=== PATIENT | male | born 1950 | race Hispanic/Latino ===

== ENCOUNTER 2018-07-22 13:13 | Inpatient (IN) | payer MEDICARE ==
[2018-07-22 13:50] LABS: BASO % 0.5 % (0.0-2.0); EOS # 0.1 K/uL (0.0-0.7); HEMOGLOBIN 15.8 g/dL (12.0-18.0); LYMPH # 1.9 K/uL (1.0-4.3); MEAN CELL VOLUME 97.6 fL (80.0-94.0); MEAN CORPUSCULAR HEMOGLOBIN 33.4 pg (27.0-31.0); MEAN CORPUSCULAR HGB CONC 34.2 g/dL (33.0-37.0); MEAN PLATELET VOLUME 8.1 fL (7.2-11.7); MONO # 0.9 K/uL (0.0-0.8); MONO % 10.1 % (0.0-10.0); NEUT # 5.9 K/uL (1.8-7.0); NEUT % 67.4 % (50.0-75.0); RBC 4.74 Mil/uL (4.40-5.90); RED CELL DISTRIBUTION WIDTH 15.8 % (11.5-14.5); WHITE BLOOD COUNT 8.8 K/uL (4.8-10.8)
[2018-07-22 13:59] LABS: ALB/GLOB RATIO 1.5 (1.0-2.1); ALBUMIN 4.6 g/dL (3.5-5.0); ALT/SGPT 24 U/L (21-72); AST/SGOT 36 U/L (17-59); BLOOD UREA NITROGEN 36 mg/dL (9-20); CALCIUM 8.4 mg/dl (8.6-10.4); GFR NON-AFRICAN AMERICAN > 60
[2018-07-22 14:11] LABS: B-TYPE NATRIURETIC PEPTIDE 220 pg/mL (0-900); CK-MB 4.38 ng/mL (0.0-3.38)
--- NOTE | 2018-07-22 14:17 | RAD ---
Date of service: 07/22/2018 PROCEDURE: CHEST RADIOGRAPH, 1 VIEW HISTORY: sob COMPARISON: None available. FINDINGS: LUNGS: Heterogeneous opacities noted at left lower lobe and lung base may represent atelectasis or infiltrate. Mild elevation of the left hemidiaphragm is noted. PLEURA: No pneumothorax or pleural fluid seen. CARDIOVASCULAR: No aortic atherosclerotic calcification present. Normal. OSSEOUS STRUCTURES: No significant abnormalities. VISUALIZED UPPER ABDOMEN: Normal. OTHER FINDINGS: None. IMPRESSION: Heterogeneous opacities at the left lower lobe may represent atelectasis or infiltrate.
--- NOTE | 2018-07-22 15:30 | C.PDOC ---
History Of Present Illness 68 year old male with PMHx of diabetes and HTN (uncontrolled, does not have a PMD or specialist) BIBA to ED for evaluation of shortness of breath. He reports he stepped out of his house and went to help an elderly neighbor that was laying on the ground. He called 911 and when the helper coordinator came they noticed he was short of breath. Patient denies any chest pain, palpitations, headache, dizziness, fever, cough, headache, or confusion. Reports he quit smoking cigarettes several weeks ago. Time Seen by Provider: 07/22/18 13:16 Chief Complaint (Nursing): Medical Clearance History Per: Patient History/Exam Limitations: no limitations Onset/Duration Of Symptoms: Days Current Symptoms Are (Timing): Better Past Medical History Reviewed: Historical Data, Nursing Documentation, Vital Signs Vital Signs: Last Vital Signs Temp 97.5 F L 07/22/18 13:13 Pulse 93 H 07/22/18 13:13 Resp 16 07/22/18 13:13 BP 169/81 H 07/22/18 13:13 Pulse Ox 96 07/22/18 13:13 Primary Care Provider: Non [facility] Provider, - Medical History PMH: COPD (not sure), HTN Other Surgeries: Orthopedic surgery Family History: States: No Known Family Hx - Social History Hx Alcohol Use: Yes Hx Substance Use: No - Immunization History Hx Tetanus Toxoid Vaccination: No Hx Influenza Vaccination: No Hx Pneumococcal Vaccination: No Review Of Systems Constitutional: Negative for: Fever, Chills Cardiovascular: Negative for: Chest Pain, Palpitations Respiratory: Positive for: Shortness of Breath Gastrointestinal: Negative for: Nausea, Vomiting, Diarrhea Neurological: Negative for: Confusion, Headache, Dizziness Physical Exam - Physical Exam Appears: Non-toxic, No Acute Distress Skin: Warm, Dry Head: Normacephalic Eye(s): bilateral: Normal Inspection, PERRL, EOMI Nose: Normal Oral Mucosa: Moist Neck: Step Off Deformity Chest: Symmetrical Cardiovascular: Rhythm Regular Respiratory: Normal Breath Sounds, No Rales, No Rhonchi, No Wheezing, Other (Speaking full sentences ) Gastrointestinal/Abdominal: Soft, No Tenderness Extremity: No Pedal Edema Neurological/Psych: Oriented x3, Normal Speech Gait: Steady ED Course And Treatment - Laboratory Results Result Diagrams: 07/25/18 08:26 07/25/18 08:26 Lab Results: Troponin I 0.0530 ng/mL (0.00-0.120) 07/22/18 13:39 NT-Pro-B Natriuret Pep 220 pg/mL (0-900) 07/22/18 13:39 Total Bilirubin 0.7 mg/dL (0.2-1.3) 07/22/18 13:39 AST 36 U/L (17-59) 07/22/18 13:39 ALT 24 U/L (21-72) 07/22/18 13:39 Alkaline Phosphatase 101 U/L (38-126) 07/22/18 13:39 Total Protein 7.7 g/dL (6.3-8.3) 07/22/18 13:39 Albumin 4.6 g/dL (3.5-5.0) 07/22/18 13:39 Globulin 3.0 gm/dL (2.2-3.9) 07/22/18 13:39 Albumin/Globulin Ratio 1.5 (1.0-2.1) 07/22/18 13:39 ECG: Interpreted By Me, Viewed By Me (sinus rhythm 91 bpm, left axis deviation, LBBB, no acute ST/T wave changes) ECG Rhythm: Sinus Rhythm, L BBB ECG Interpretation: No Acute Changes Rate From EC O2 Sat by Pulse Oximetry: 96 (RA) Pulse Ox Interpretation: Normal - Other Rad CXR X-Ray: Viewed By Me, Read By Radiologist Interpretation: Accession No. : [id number]. Patient Name / ID : MICAELA SUAREZ / [id number]. Exam Date : 07/22/2018 13:36:43 ( Approved ). Study Comment : Sex / Age : M / 68Y. Creator : Ronny Hayward MD. Dictator : Ronny Hayward MD. Metal Spraying Machine Operator : Shipping And Receiving Associate : Ronny Hayward MD. Approver2 : Report Date : 07/22/2018 14:13:29. My Comment : . Date of service: 07/22/2018. PROCEDURE: CHEST RADIOGRAPH, 1 VIEW. HISTORY: sob. COMPARISON: None available. FINDINGS: LUNGS: Heterogeneous opacities noted at left lower lobe and lung base may represent atelectasis or infiltrate. Mild elevation of the left hemidiaphragm is noted. PLEURA: No pneumothorax or pleural fluid seen. CARDIOVASCULAR: No aortic atherosclerotic calcification present. Normal. OSSEOUS STRUCTURES: No significant abnormalities. VISUALIZED UPPER ABDOMEN: Normal. OTHER FINDINGS: None. IMPRESSION: Heterogeneous opacities at the left lower lobe may represent a telectasis or infiltrate. - CT Scan/US CT HEAD Other Rad Studies (CT/US): Read By Radiologist, Radiology Report Reviewed CT/US Interpretation: Accession No. : [id number]. Patient Name / ID : MICAELA SUAREZ / [id number]. Exam Date : 07/22/2018 15:32:26 ( Approved ). Study Comment : Sex / Age : M / 68Y. Creator : Jayden Saavedra. Dictator : Ronny Hayward MD. Metal Spraying Machine Operator : Shipping And Receiving Associate : Ronny Hayward MD. Approver2 : Report Date : 07/22/2018 15:38:03. My Comment : . Date of service: 07/22/2018. PROCEDURE: CT HEAD WITHOUT CONTRAST. HISTORY: ams. COMPARISON: No prior similar study available for comparison. TECHNIQUE: Axial computed tomography images were obtained through the head/brain without intravenous contrast. Radiation dose: Total exam DLP = 1105.04 mGy-cm. This CT exam was performed using one or more of the following dose reduction techniques: Automated exposure control, adjustment of the mA and/or kV according to patient size, and/or use of iterative reconstruction technique. FINDINGS: HEMORRHAGE: No intracranial hemorrhage. BRAIN: There are small foci of encephalomalacia at the right basal ganglia and coronal radiata likely represent old lacunar infarcts. There is also chronic lacunar infarct at the left caudate head. Mild atrophy and [id number] chronic microvascular white matter ischemic changes are noted. This suspicious for focal hypodensity in the edgar slightly to the right of the midline versus artifact. VENTRICLES: Unremarkable. No hydrocephalus. CALVARIUM: Unremarkable. PARANASAL SINUSES: Unremarkable as visualized. No significant inflammatory changes. MASTOID AIR CELLS: Partial opacification of the left mastoid is noted. OTHER FINDINGS: None. IMPRESSION: No evidence of acute intracranial hemorrhage territorial infarct mass effect or midline shift. Bilateral basal ganglia lacunar infarcts. Volume loss and possible chronic microvascular white matter ischemic disease. Partial opacification of the left mastoid. Progress Note: Blood work, EKG, CXR, and CT head ordered and reviewed. PO ASA given after CT head neg for bleed. - Physician Consult Information Physician Contacted: Veto Mann Outcome Of Conversation: Discussed patient with medicine induction brazer, agrees with obs tele for dyspnea, confusion, r/o ACS vs TIA. NIHSS Stroke Scale - Date/Time Evaluation Performed Date Performed: 07/22/18 Time Performed: 13:15 When Was NIHSS Performed: Baseline - How Severe is the Stroke Level of Consciousness: 0=Alert LOC to Questions: 0=Both comments correct LOC to commands: 0=Obeys both correctly Best Gaze: 0=Normal Visual: 0=No visual loss Facial: 0=Normal Motor Arm - Left: 0=No drift Motor Arm - Right: 0=No drift Motor Leg - Left: 0=No drift Motor Leg - Right: 0=No drift Limb Ataxia: 0=Absent Sensory: 0=Normal Best Language: 0=No aphasia Dysarthia: 0=Normal articulation Extinction & Inattention (Neglect): 0=Normal, no object Score: 0 rTPA Inclusion/Exclusion - Refusal of Treatment Patient Refused Treatment: No - Inclusion Criteria for Altepase Patient is 18 years or Older: Yes The Clinical Diagnosis of Ischemic Stroke That is Causing a Potentially Disabling Neurological Deficit: No Time of Onset is Well Established to be Less Than 270 Minute Before Treatment Would Begin: Yes Risk/Benefit Discussed With Patient/Family Member Present: No Disposition - Disposition Disposition: HOSPITALIZED Disposition Time: 16:30 Condition: STABLE - Clinical Impression Clinical Impression: Dyspnea, Confusion - Scribe Statement The provider has reviewed the documentation as recorded by the Scribe Yolanda Pan All medical record entries made by the Kathy were at my direction and personally dictated by me. I have reviewed the chart and agree that the record accurately reflects my personal performance of the history, physical exam, medical decision making, and the department course for this patient. I have also personally directed, reviewed, and agree with the discharge instructions and disposition. Decision To Admit - Pt Status Changed To: Hospital Disposition Of: Observation - . Bed Request Type: Telemetry Admitting Physician: Veto Mann Patient Diagnosis: Dyspnea, Confusion
--- NOTE | 2018-07-22 15:31 | C.PDOC ---
Time Seen by Provider: 07/22/18 13:16 Chief Complaint (Nursing): Medical Clearance Past Medical History Vital Signs: Last Vital Signs Temp 97.5 F L 07/22/18 13:13 Pulse 93 H 07/22/18 13:13 Resp 16 07/22/18 13:13 BP 169/81 H 07/22/18 13:13 Pulse Ox 96 07/22/18 13:13 Primary Care Provider: Non [facility] Provider, - Medical History PMH: COPD (not sure), HTN - Social History Hx Alcohol Use: Yes Hx Substance Use: No - Immunization History Hx Tetanus Toxoid Vaccination: No Hx Influenza Vaccination: No Hx Pneumococcal Vaccination: No ED Course And Treatment - Laboratory Results Result Diagrams: 07/22/18 13:39 07/22/18 13:39 Lab Results: Troponin I 0.0530 ng/mL (0.00-0.120) 07/22/18 13:39 NT-Pro-B Natriuret Pep 220 pg/mL (0-900) 07/22/18 13:39 Total Bilirubin 0.7 mg/dL (0.2-1.3) 07/22/18 13:39 AST 36 U/L (17-59) 07/22/18 13:39 ALT 24 U/L (21-72) 07/22/18 13:39 Alkaline Phosphatase 101 U/L (38-126) 07/22/18 13:39 Total Protein 7.7 g/dL (6.3-8.3) 07/22/18 13:39 Albumin 4.6 g/dL (3.5-5.0) 07/22/18 13:39 Globulin 3.0 gm/dL (2.2-3.9) 07/22/18 13:39 Albumin/Globulin Ratio 1.5 (1.0-2.1) 07/22/18 13:39 O2 Sat by Pulse Oximetry: 96 Disposition - Disposition
--- NOTE | 2018-07-22 15:58 | CT ---
Date of service: 07/22/2018 PROCEDURE: CT HEAD WITHOUT CONTRAST. HISTORY: ams COMPARISON: No prior similar study available for comparison. TECHNIQUE: Axial computed tomography images were obtained through the head/brain without intravenous contrast. Radiation dose: Total exam DLP = 1105.04 mGy-cm. This CT exam was performed using one or more of the following dose reduction techniques: Automated exposure control, adjustment of the mA and/or kV according to patient size, and/or use of iterative reconstruction technique. FINDINGS: HEMORRHAGE: No intracranial hemorrhage. BRAIN: There are small foci of encephalomalacia at the right basal ganglia and coronal radiata likely represent old lacunar infarcts. There is also chronic lacunar infarct at the left caudate head. Mild atrophy and [id number] chronic microvascular white matter ischemic changes are noted. This suspicious for focal hypodensity in the edgar slightly to the right of the midline versus artifact. VENTRICLES: Unremarkable. No hydrocephalus. CALVARIUM: Unremarkable. PARANASAL SINUSES: Unremarkable as visualized. No significant inflammatory changes. MASTOID AIR CELLS: Partial opacification of the left mastoid is noted. OTHER FINDINGS: None. IMPRESSION: No evidence of acute intracranial hemorrhage territorial infarct mass effect or midline shift. Bilateral basal ganglia lacunar infarcts. Volume loss and possible chronic microvascular white matter ischemic disease. Partial opacification of the left mastoid.
[2018-07-22] MEDS: cefTRIAXone IV 1 gm in Dextros 50 ML IVPB SCH (19:50)
[2018-07-22 21:28] LABS: CK-MB 3.15 ng/mL (0.0-3.38); TROPONIN I 0.047 ng/mL (0.00-0.120)
[2018-07-23 05:53] LABS: CK-MB 2.43 ng/mL (0.0-3.38); TROPONIN I 0.038 ng/mL (0.00-0.120)
--- NOTE | 2018-07-23 10:02 | CP.PCM.CON ---
History of Present Illness - History of Present Illness History of Present Illness: Consultation for evaluation of SOB/LBBB with borderline +ve TnI HPI: 68-year-old male with past medical history as per himself of diagnosis of hypertension and diabetes mellitus not on any prescription medications at the does not take care of himself and somewhat of noncompliant nature who presented after being evaluated by EMS who was called for a neighbor when patient walked up and down the stairway and was feeling short of breath does have [id number] history of smoking on EKG on presentation showed left bundle branch block serial enzymes were borderline negative. Also complains of intermittent retrosternal burning sensation which she has noticed. Review of Systems - Review of Systems Systems not reviewed;Unavailable: Acuity of Condition - Constitutional Constitutional: As Per HPI - EENT Eyes: As Per HPI Ears: As Per HPI Nose/Mouth/Throat: As Per HPI - Cardiovascular Cardiovascular: As Per HPI - Respiratory Respiratory: As Per HPI - Gastrointestinal Gastrointestinal: As Per HPI - Genitourinary Genitourinary: As Per HPI - Reproductive: Male Reproductive:Male: As Per HPI - Musculoskeletal Musculoskeletal: As Per HPI - Integumentary Integumentary: As Per HPI - Neurological Neurological: As Per HPI - Psychiatric Psychiatric: As Per HPI - Endocrine Endocrine: As Per HPI - Hematologic/Lymphatic Hematologic: As Per HPI Past Patient History - Infectious Disease Hx of Infectious Diseases: None - Past Social History Smoking Status: Former Smoker - CARDIAC Hx Hypertension: Yes - PULMONARY Hx Chronic Obstructive Pulmonary Disease (COPD): Yes (not sure) - ENDOCRINE/METABOLIC Hx Diabetes Mellitus Type 2: Yes - PSYCHIATRIC Hx Substance Use: No - SURGICAL HISTORY Hx Surgeries: Yes Hx Orthopedic Surgery: Yes - ANESTHESIA Hx Anesthesia: No Meds Allergies/Adverse Reactions: Allergies Allergy/AdvReac Type Severity Reaction Status Date / Time No Known Allergies Allergy Verified 07/22/18 13:34 - Medications Medications: Current Medications Aspirin (Aspirin) 325 mg PO DAILY [facility] Enoxaparin Sodium (Lovenox) 40 mg SC DAILY [facility] Ceftriaxone Sodium (Rocephin Iv 1 Gm Duplex) 50 mls @ 100 mls/hr IVPB DAILY [facility]; Protocol Last Admin: 07/22/18 19:50 Dose: 100 mls/hr Pantoprazole Sodium (Protonix Ec Tab) 40 mg PO DAILY [facility] Rosuvastatin Calcium (Crestor) 10 mg PO HS [facility] Last Admin: 07/22/18 21:44 Dose: 10 mg Physical Exam - Constitutional Appears: Well - Head Exam Head Exam: ATRAUMATIC, NORMAL INSPECTION, NORMOCEPHALIC - Eye Exam Eye Exam: EOMI, Normal appearance, PERRL Pupil Exam: NORMAL ACCOMODATION, PERRL - ENT Exam ENT Exam: Mucous Membranes Moist, Normal Exam - Neck Exam Neck exam: Positive for: Normal Inspection - Respiratory Exam Respiratory Exam: Clear to Auscultation Bilateral, NORMAL BREATHING PATTERN - Cardiovascular Exam Cardiovascular Exam: REGULAR RHYTHM, +S1, +S2, Systolic Murmur - GI/Abdominal Exam GI & Abdominal Exam: Normal Bowel Sounds, Soft. absent: Tenderness - Extremities Exam Extremities exam: Positive for: normal inspection - Back Exam Back exam: NORMAL INSPECTION - Neurological Exam Neurological exam: Alert, CN II-XII Intact, Normal Gait, Oriented x3, Reflexes Normal - Psychiatric Exam Psychiatric exam: Normal Affect, Normal Mood - Skin Skin Exam: Dry, Intact, Normal Color, Warm Results - Vital Signs Recent Vital Signs: Last Vital Signs Temp 97.5 F L 07/23/18 08:00 Pulse 82 07/23/18 08:00 Resp 20 07/23/18 08:00 BP 142/74 07/23/18 08:00 Pulse Ox 95 07/23/18 08:00 - Labs Result Diagrams: 07/22/18 13:39 07/22/18 13:39 Labs: Laboratory Results - last 24 hr 07/22/18 07/22/18 07/22/18 13:23 13:39 13:39 WBC 8.8 RBC 4.74 Hgb 15.8 Hct 46.3 MCV 97.6 H MCH 33.4 H MCHC 34.2 RDW 15.8 H Plt Count 305 MPV 8.1 Neut % (Auto) 67.4 Lymph % (Auto) 21.0 Bandera % (Auto) 10.1 H Eos % (Auto) 1.0 Baso % (Auto) 0.5 Neut # (Auto) 5.9 Lymph # (Auto) 1.9 Bandera # (Auto) 0.9 H Eos # (Auto) 0.1 Baso # (Auto) 0.0 Sodium 140 Potassium 4.0 Chloride 98 Carbon Dioxide 24 Anion Gap 22 H BUN 36 H Creatinine 1.1 Est GFR ( Amer) > 60 Est GFR (Non-Af Amer) > 60 POC Glucose (mg/dL) 153 H Random Glucose 123 H Calcium 8.4 L Total Bilirubin 0.7 AST 36 ALT 24 Alkaline Phosphatase 101 Total Creatine Kinase 538 H CK-MB (Mass) 4.38 H Troponin I 0.0530 NT-Pro-B Natriuret Pep 220 Total Protein 7.7 Albumin 4.6 Globulin 3.0 Albumin/Globulin Ratio 1.5 07/22/18 07/22/18 07/23/18 20:56 21:25 05:14 WBC RBC Hgb Hct MCV MCH MCHC RDW Plt Count MPV Neut % (Auto) Lymph % (Auto) Band[place] % (Auto) Eos % (Auto) Baso % (Auto) Neut # (Auto) Lymph # (Auto) Bandera # (Auto) Eos # (Auto) Baso # (Auto) Sodium Potassium Chloride Carbon Dioxide Anion Gap BUN Creatinine Est GFR ( Amer) Est GFR (Non-Af Amer) POC Glucose (mg/dL) 140 H Random Glucose Calcium Total Bilirubin AST ALT Alkaline Phosphatase Total Creatine Kinase 551 H 385 H CK-MB (Mass) 3.15 2.43 Troponin I 0.0470 0.0380 NT-Pro-B Natriuret Pep Total Protein Albumin Globulin Albumin/Globulin Ratio Assessment & Plan (1) Chest pain Assessment and Plan: etiology ? IHD will need ischemic evaluation Echo reviewed - shows EF of 37% ( new onset ) Status: Acute (2) SOB (shortness of breath) Assessment and Plan: etiology unclear EKG - LBBB borderline +ve TnI Echo - EF 37% plan for cath once cleared by psych and neuro ( possibly monday ) Status: Acute (3) LBBB (left bundle branch block) Status: Acute (4) Elevated troponin Status: Acute
[2018-07-23] MEDS: Pantoprazole 40 mg EC Tab PO SCH (10:13)
[2018-07-23] MEDS: Enoxaparin 40 mg Syringe SC SCH (10:13)
[2018-07-23] MEDS: cefTRIAXone IV 1 gm in Dextros 50 ML IVPB SCH (10:13)
[2018-07-23] MEDS: Metoprolol Succinate 25 mg XL Tab PO SCH (11:04)
--- NOTE | 2018-07-23 12:41 | CP.PCM.CON ---
History of Present Illness - History of Present Illness History of Present Illness: Neurology consult dictated. MR Gavin was brought in for altered mental status but states that he was quite breathless when being found by EMS due to decreased EF and O2 output. This is corroborated by the chart. He has a normal neurological exam and is now doing well. THere is no other neurological intervention recommended at this time. Thank you Dr. Cantrell Neurology Past Patient History - Infectious Disease Hx of Infectious Diseases: None - Past Social History Smoking Status: Former Smoker - CARDIAC Hx Hypertension: Yes - PULMONARY Hx Chronic Obstructive Pulmonary Disease (COPD): Yes (not sure) - ENDOCRINE/METABOLIC Hx Diabetes Mellitus Type 2: Yes - PSYCHIATRIC Hx Substance Use: No - SURGICAL HISTORY Hx Surgeries: Yes Hx Orthopedic Surgery: Yes - ANESTHESIA Hx Anesthesia: No Meds Allergies/Adverse Reactions: Allergies Allergy/AdvReac Type Severity Reaction Status Date / Time No Known Allergies Allergy Verified 07/22/18 13:34 - Medications Medications: Current Medications Aspirin (Aspirin) 325 mg PO DAILY [facility] Last Admin: 07/23/18 10:13 Dose: 325 mg Enoxaparin Sodium (Lovenox) 40 mg SC DAILY [facility] Last Admin: 07/23/18 10:13 Dose: 40 mg Ceftriaxone Sodium (Rocephin Iv 1 Gm Duplex) 50 mls @ 100 mls/hr IVPB DAILY [facility]; Protocol Last Admin: 07/23/18 10:13 Dose: 100 mls/hr Metoprolol Succinate (Toprol Xl) 25 mg PO DAILY [facility] Last Admin: 07/23/18 11:04 Dose: 25 mg Pantoprazole Sodium (Protonix Ec Tab) 40 mg PO DAILY [facility] Last Admin: 07/23/18 10:13 Dose: 40 mg Rosuvastatin Calcium (Crestor) 10 mg PO HS [facility] Last Admin: 07/22/18 21:44 Dose: 10 mg Results - Vital Signs Recent Vital Signs: Last Vital Signs Temp 97.5 F L 07/23/18 08:00 Pulse 82 07/23/18 10:00 Resp 20 07/23/18 08:00 BP 142/74 07/23/18 08:00 Pulse Ox 95 07/23/18 10:00 - Labs Result Diagrams: 07/22/18 13:39 07/22/18 13:39 Labs: Laboratory Results - last 24 hr 07/22/18 07/22/18 07/22/18 13:23 13:39 13:39 WBC 8.8 RBC 4.74 Hgb 15.8 Hct 46.3 MCV 97.6 H MCH 33.4 H MCHC 34.2 RDW 15.8 H Plt Count 305 MPV 8.1 Neut % (Auto) 67.4 Lymph % (Auto) 21.0 Anderson % (Auto) 10.1 H Eos % (Auto) 1.0 Baso % (Auto) 0.5 Neut # (Auto) 5.9 Lymph # (Auto) 1.9 Anderson # (Auto) 0.9 H Eos # (Auto) 0.1 Baso # (Auto) 0.0 Sodium 140 Potassium 4.0 Chloride 98 Carbon Dioxide 24 Anion Gap 22 H BUN 36 H Creatinine 1.1 Est GFR ( Amer) > 60 Est GFR (Non-Af Amer) > 60 POC Glucose (mg/dL) 153 H Random Glucose 123 H Calcium 8.4 L Total Bilirubin 0.7 AST 36 ALT 24 Alkaline Phosphatase 101 Total Creatine Kinase 538 H CK-MB (Mass) 4.38 H Troponin I 0.0530 NT-Pro-B Natriuret Pep 220 Total Protein 7.7 Albumin 4.6 Globulin 3.0 Albumin/Globulin Ratio 1.5 07/22/18 07/22/18 07/23/18 20:56 21:25 05:14 WBC RBC Hgb Hct MCV MCH MCHC RDW Plt Count MPV Neut % (Auto) Lymph % (Auto) Anderson % (Auto) Eos % (Auto) Baso % (Auto) Neut # (Auto) Lymph # (Auto) Anderson # (Auto) Eos # (Auto) Baso # (Auto) Sodium Potassium Chloride Carbon Dioxide Anion Gap BUN Creatinine Est GFR ( Amer) Est GFR (Non-Af Amer) POC Glucose (mg/dL) 140 H Random Glucose Calcium Total Bilirubin AST ALT Alkaline Phosphatase Total Creatine Kinase 551 H 385 H CK-MB (Mass) 3.15 2.43 Troponin I 0.0470 0.0380 NT-Pro-B Natriuret Pep Total Protein Albumin Globulin Albumin/Globulin Ratio
[2018-07-23 14:34] LABS: ABG ALLEN TEST PO; ARTERIAL BLOOD GAS HCO3 25.8 mmol/L (21-28); ARTERIAL BLOOD GAS HEMOGLOBIN 14.3 g/dL (11.7-17.4); ARTERIAL BLOOD GAS PCO2 36 mm/Hg (35-45); ARTERIAL BLOOD GAS PH 7.45 (7.35-7.45); ARTERIAL BLOOD GAS PO2 81 mm/Hg (80-100); ARTERIAL BLOOD GAS TCO2 26.1 mmol/L (22-28)
--- NOTE | 2018-07-23 19:11 | CP.PCM.HP ---
Past Patient History - Infectious Disease Hx of Infectious Diseases: None - Past Social History Smoking Status: Former Smoker - CARDIAC Hx Hypertension: Yes - PULMONARY Hx Chronic Obstructive Pulmonary Disease (COPD): Yes (not sure) - ENDOCRINE/METABOLIC Hx Diabetes Mellitus Type 2: Yes - PSYCHIATRIC Hx Substance Use: No - SURGICAL HISTORY Hx Surgeries: Yes Hx Orthopedic Surgery: Yes - ANESTHESIA Hx Anesthesia: No Meds Allergies/Adverse Reactions: Allergies Allergy/AdvReac Type Severity Reaction Status Date / Time No Known Allergies Allergy Verified 07/22/18 13:34 Physical Exam - Constitutional Appears: Well - Head Exam Head Exam: ATRAUMATIC, NORMAL INSPECTION, NORMOCEPHALIC - Eye Exam Eye Exam: EOMI, Normal appearance, PERRL Pupil Exam: NORMAL ACCOMODATION, PERRL - ENT Exam ENT Exam: Mucous Membranes Moist, Normal Exam - Neck Exam Neck exam: Positive for: Normal Inspection - Respiratory Exam Respiratory Exam: Decreased Breath Sounds - Cardiovascular Exam Cardiovascular Exam: REGULAR RHYTHM, +S1, +S2 - GI/Abdominal Exam GI & Abdominal Exam: Diminished Bowel Sounds, Soft - Rectal Exam Rectal Exam: Deferred - Neurological Exam Neurological exam: Oriented x3 Results - Vital Signs Recent Vital Signs: Last Vital Signs Temp 98 F 07/23/18 16:51 Pulse 71 07/23/18 16:51 Resp 20 07/23/18 16:51 BP 155/79 H 07/23/18 16:51 Pulse Ox 95 07/23/18 16:51 - Labs Result Diagrams: 07/22/18 13:39 07/22/18 13:39 Labs: Laboratory Results - last 24 hr 07/22/18 07/22/18 07/23/18 20:56 21:25 05:14 Puncture Site pCO2 pO2 HCO3 ABG pH ABG Total CO2 ABG O2 Saturation ABG Base Excess ABG Hemoglobin ABG Carboxyhemoglobin POC ABG HHb (Measured) ABG Methemoglobin Mao Test A-a O2 Difference Respiratory Index Hgb O2 Saturation FiO2 POC Glucose (mg/dL) 140 H Total Creatine Kinase 551 H 385 H CK-MB (Mass) 3.15 2.43 Troponin I 0.0470 0.0380 07/23/18 14:31 Puncture Site Rra pCO2 36 pO2 81 HCO3 25.8 ABG pH 7.45 ABG Total CO2 26.1 ABG O2 Saturation 98.0 ABG Base Excess 1.3 ABG Hemoglobin 14.3 ABG Carboxyhemoglobin 2.2 H POC ABG HHb (Measured) 1.9 ABG Methemoglobin 2.7 Mao Test Po A-a O2 Difference 24.0 Respiratory Index 0.3 Hgb O2 Saturation 93.2 L FiO2 21.0 POC Glucose (mg/dL) Total Creatine Kinase CK-MB (Mass) Troponin I
--- NOTE | 2018-07-23 21:02 | CARD ---
APPROVED REPORT Date of service: 07/23/2018 EXAM: Two-dimensional and M-mode echocardiogram with Doppler and color Doppler. Other Information Quality : TDSRhythm : INDICATION Dyspnea elevated troponin, lbbb RISK FACTORS Hypertension Diabetes 2D DIMENSIONS IVSd1.0 (0.7-1.1cm)LVDd4.5 (3.9-5.9cm) LVOT Diameter2.4 (1.8-2.4cm)PWd1.0 (0.7-1.1cm) LA Tnkmgh10 (18-58mL)LVDs3.7 (2.5-4.0cm) FS (%) 17.1 %LVEF (%)35.9 (>50%) LVEF (Shah's)30 % M-Mode DIMENSIONS Left Atrium (MM)3.71 (2.5-4.0cm)Aortic Root3.35 (2.2-3.7cm) Aortic Cusp Exc.1.60 (1.5-2.0cm) Aortic Valve AoV Peak Jfhrxyhn565.3cm/sAoV VTI38.3cmAO Peak GR.18mmHg LVOT Peak Kdoolkef616.5cm/sLVOT VTI21.82cmAO Mean GR.12mmHg MIKA (VMAX)2.69or1YXG (VTI)2.51cm2 Mitral Valve MV E Ryrbdges15.6cm/sMV A Pqonajak326.0cm/sE/A ratio0.6 TDI Lateral E' Peak V8.22cm/sMedial E' Peak V5.45cm/sE/Lateral E'10.0 E/Medial E'15.2 LEFT VENTRICLE The left ventricle is normal size. There is normal left ventricular wall thickness. The left ventricular function is markedly reduced, with diffuse hypokinesis. The left ventricular ejection fraction is about 25% The septal and anteroseptal dan are aknetic. The left ventricular diastolic function is abnormal, type I. No left ventricle thrombus noted on this study. There is no ventricular septal defect visualized. There is no left ventricular aneurysm. There is no mass noted in the left ventricle. RIGHT VENTRICLE The right ventricle is normal size. There is normal right ventricular wall thickness. The right ventricular systolic function is normal. ATRIA The left atrium size is normal. The right atrium size is normal. The interatrial septum is intact with no evidence for an atrial septal defect. AORTIC VALVE The aortic valve is caldified with mildy reduced opening. peak/mean gradients are 19/13 mm Hg. Valve area calcualtions are likely incrrect. No aortic regurgitation is present. There is no aortic valvular stenosis. There is no aortic valvular vegetation. MITRAL VALVE The mitral valve is normal in structure and function. There is no evidence of mitral valve prolapse. There is no mitral valve stenosis. There is trace mitral valve regurgitation noted. TRICUSPID VALVE The tricuspid valve is normal in structure and function. There is no tricuspid valve regurgitation noted. There is no tricuspid valve prolapse or vegetation. There is no tricuspid valve stenosis. PULMONIC VALVE The pulmonary valve is normal in structure and function. There is no pulmonic valvular regurgitation. There is no pulmonic valvular stenosis. GREAT VESSELS The aortic root is normal in size. The ascending aorta is normal in size. The pulmonary artery is normal. The IVC is normal in size and collapses >50% with inspiration. PERICARDIAL EFFUSION The pericardium appears normal. There is no pleural effusion. <Conclusion> The left ventricular function is markedly reduced, with diffuse hypokinesis. The left ventricular ejection fraction is about 25% The septal and anteroseptal dan are aknetic. The left ventricular diastolic function is abnormal, type I. Mild aortic stenosis. Normal Doppler
--- NOTE | 2018-07-23 21:54 | CARD ---
APPROVED REPORT Date of service: 07/22/2018 EKG Measurement Heart [id number] <Conclusion> Normal sinus rhythm Possible Left atrial enlargement Left bundle branch block Abnormal ECG
--- NOTE | 2018-07-24 06:36 | CON ---
DATE: 07/23/2018 Neurologic consult called by Dr. Edie Mann. HISTORY OF PRESENT ILLNESS: Mr. Gavin is a 68-year-old male with past medical history of diabetes, high blood pressure, who came to the emergency room yesterday at 15:28 had severe shortness of breath when he was walking down his stairs and he said that he stepped out of his house and ran down the stairs to help an elderly person lying on the ground. He called 911 and he was short of breath. PHYSICAL EXAMINATION: VITAL SIGNS: In the emergency room, temperature was 97.5, pulse 93, respiratory rate 16, blood pressure 169/81, pulse ox 96%. He looks stable. REVIEW OF SYSTEMS: No malaise, no headache, no fatigue, no nausea, no vomiting, no diarrhea. PAST MEDICAL HISTORY: COPD, hypertension. PAST SURGICAL HISTORY: surgery. FAMILY AND SOCIAL HISTORY: The patient does not smoke. He does not drink. He lives alone. ALLERGIES: NO KNOWN DRUG ALLERGIES. LABORATORY DATA: CAT scan of the head within normal limits. Echocardiogram is pending. Labs as follows: CBC is normal. Chemistry is significant only for BUN 36, creatinine 1.1, POC glucose 140, CK 385. IMPRESSION AND PLAN: This is a 68-year-old male with shortness of breath, resulting in altered mental status. At this point, neurological intervention. The patient needs no further imaging or EEG secondary to decreased oxygenation. Thank you for consulting Neurology. Please consult again elizabeth Diony Cantrell MD
[2018-07-24] MEDS: Pantoprazole 40 mg EC Tab PO SCH (10:12)
[2018-07-24] MEDS: Metoprolol Succinate 25 mg XL Tab PO SCH (10:12)
[2018-07-24] MEDS: Enoxaparin 40 mg Syringe SC SCH (10:12)
[2018-07-24] MEDS: cefTRIAXone IV 1 gm in Dextros 50 ML IVPB SCH (10:13)
--- NOTE | 2018-07-24 12:24 | CP.PCM.PN ---
Subjective - Date & Time of Evaluation Date of Evaluation: 07/24/18 Time of Evaluation: 12:23 - Subjective Subjective: stable MS confused , AxOx1 Objective - Vital Signs/Intake and Output Vital Signs (last 24 hours): Temp Pulse Resp BP Pulse Ox 98.5 F 67 20 132/67 95 07/24/18 07:00 07/24/18 08:33 07/24/18 07:00 07/24/18 07:00 07/24/18 08:33 - Medications Medications: Current Medications Aspirin (Aspirin) 325 mg PO DAILY [facility] Last Admin: 07/24/18 10:12 Dose: 325 mg Enoxaparin Sodium (Lovenox) 40 mg SC DAILY [facility] Last Admin: 07/24/18 10:12 Dose: 40 mg Ceftriaxone Sodium (Rocephin Iv 1 Gm Duplex) 50 mls @ 100 mls/hr IVPB DAILY [facility]; Protocol Last Admin: 07/24/18 10:13 Dose: 100 mls/hr Metoprolol Succinate (Toprol Xl) 25 mg PO DAILY [facility] Last Admin: 07/24/18 10:12 Dose: 25 mg Pantoprazole Sodium (Protonix Ec Tab) 40 mg PO DAILY [facility] Last Admin: 07/24/18 10:12 Dose: 40 mg Rosuvastatin Calcium (Crestor) 10 mg PO HS [facility] Last Admin: 07/23/18 21:14 Dose: 10 mg - Labs Labs: 07/22/18 13:39 07/22/18 13:39 - Constitutional Appears: Well - Head Exam Head Exam: ATRAUMATIC, NORMAL INSPECTION, NORMOCEPHALIC - Eye Exam Eye Exam: EOMI, Normal appearance, PERRL Pupil Exam: NORMAL ACCOMODATION, PERRL - ENT Exam ENT Exam: Mucous Membranes Moist, Normal Exam - Neck Exam Neck Exam: Full ROM, Normal Inspection. absent: Lymphadenopathy - Respiratory Exam Respiratory Exam: Clear to Ausculation Bilateral, NORMAL BREATHING PATTERN - Cardiovascular Exam Cardiovascular Exam: REGULAR RHYTHM, +S1, +S2. absent: Murmur - GI/Abdominal Exam GI & Abdominal Exam: Soft, Normal Bowel Sounds. absent: Tenderness - Extremities Exam Extremities Exam: Full ROM, Normal Capillary Refill, Normal Inspection. absent: Joint Swelling, Pedal Edema - Back Exam Back Exam: NORMAL INSPECTION - Neurological Exam Neurological Exam: Altered, Awake, CN II-XII Intact, Normal Gait - Psychiatric Exam Psychiatric exam: Flat Affect, Normal Mood - Skin Skin Exam: Dry, Intact, Normal Color, Warm Assessment and Plan (1) CHF (congestive heart failure) Assessment & Plan: new onset need ischemic evaluation once cleared by neuro and psych bb + RAAS modulators Status: Acute (2) Chest pain Status: Acute (3) SOB (shortness of breath) Status: Acute (4) LBBB (left bundle branch block) Status: Acute (5) Elevated troponin Status: Acute
[2018-07-24 14:15] LABS: HDL CHOLESTEROL 47 mg/dL (30-70)
[2018-07-24 14:26] LABS: LDL CHOLESTEROL 85 mg/dL (0-129)
[2018-07-24 14:34] LABS: PROTHROMBIN TIME 11.2 SECONDS (9.7-12.2)
--- NOTE | 2018-07-24 15:05 | CP.PCM.PN ---
Subjective - Date & Time of Evaluation Date of Evaluation: 07/24/18 Time of Evaluation: 15:00 - Subjective Subjective: Neuro Follow-Up: Mr. Gavin was evaluated this afternoon at bedside. Neuro was called to see pt again for AMS and confusion. When I saw the pt he was SOB, had difficulty speaking in full sentences; oxygen via nasal cannula not on properly. Pt confused and restless, agitated but I was able to redirect him. He does complain of feeling SOB. Denied to me h/a, dizziness, visual changes, chest pain, palpitations, cough, abd pain, n/v/d, paresthesias. Objective - Vital Signs/Intake and Output Vital Signs (last 24 hours): Temp Pulse Resp BP Pulse Ox 98.5 F 67 20 132/67 95 07/24/18 07:00 07/24/18 08:33 07/24/18 07:00 07/24/18 07:00 07/24/18 12:35 - Medications Medications: Current Medications Aspirin (Aspirin) 325 mg PO DAILY [facility] Last Admin: 07/24/18 10:12 Dose: 325 mg Enoxaparin Sodium (Lovenox) 40 mg SC DAILY [facility] Last Admin: 07/24/18 10:12 Dose: 40 mg Ceftriaxone Sodium (Rocephin Iv 1 Gm Duplex) 50 mls @ 100 mls/hr IVPB DAILY [facility]; Protocol Last Admin: 07/24/18 10:13 Dose: 100 mls/hr Lorazepam (Ativan) 1 mg IVP Q6H PRN PRN Reason: Anxiety Last Admin: 07/24/18 14:26 Dose: 1 mg Losartan Potassium (Cozaar) 25 mg PO DAILY [facility] Last Admin: 07/24/18 14:27 Dose: 25 mg Metoprolol Succinate (Toprol Xl) 25 mg PO DAILY [facility] Last Admin: 07/24/18 10:12 Dose: 25 mg Pantoprazole Sodium (Protonix Ec Tab) 40 mg PO DAILY [facility] Last Admin: 07/24/18 10:12 Dose: 40 mg Rosuvastatin Calcium (Crestor) 10 mg PO HS [facility] Last Admin: 07/23/18 21:14 Dose: 10 mg - Labs Labs: 07/22/18 13:39 07/22/18 13:39 PT 11.2 SECONDS (9.7-12.2) 07/24/18 13:54 INR 1.0 07/24/18 13:54 - Constitutional Appears: In Acute Distress, Agitated, Confused - Head Exam Head Exam: ATRAUMATIC, NORMAL INSPECTION, NORMOCEPHALIC - Eye Exam Eye Exam: EOMI, Normal appearance, PERRL. absent: Nystagmus Pupil Exam: NORMAL ACCOMODATION, PERRL Additional comments: pupils approx 2-3 mm and reactive b/l - ENT Exam ENT Exam: Mucous Membranes Moist - Neck Exam Neck Exam: Full ROM, Normal Inspection - Respiratory Exam Respiratory Exam: Respiratory Distress (sob, no cough). absent: NORMAL BREATHING PATTERN - GI/Abdominal Exam GI & Abdominal Exam: Soft. absent: Tenderness - Exam Additional comments: No suprapubic tenderness; no bladder distention - Extremities Exam Extremities Exam: Full ROM - Back Exam Back Exam: Full ROM, NORMAL INSPECTION - Neurological Exam Neurological Exam: Altered, Awake, CN II-XII Intact. absent: Oriented x3 Neuro motor strength exam: Left Upper Extremity: 5, Right Upper Extremity: 5, Left Lower Extremity: 5, Right Lower Extremity: 5 Additional comments: Awake; disoriented x3, states to me that he is [facility] and that the year is "90." No dysarthria or aphasia Confused, restless, agitated; able to be redirected easily by me. FROM to all extremities, no focal weakness. No sensory deficits No tremors or abnormal movements. Does not appear to be post-ictal. - Psychiatric Exam Psychiatric exam: Agitated Additional comments: confused, agitated - Skin Skin Exam: Diaphoretic, Normal Color Assessment and Plan (1) Acute encephalopathy Assessment & Plan: Imaging reviewed: -ECHO (): -CT Head (07/21/18): No evidence of acute intracranial hemorrhage territorial infarct mass effect or midline shift. Bilateral basal ganglia lacunar infarcts. Volume loss and possible chronic microvascular white matter ischemic disease. Partial opacification of the left mastoid. Mr. Gavin appears to be encephalopathic 2/2 respiratory distress, SOB, and possible hypoxia. He does not have any focal neurological deficits and does not appear to be in a post-itcal state. -We recommend management and treatment of underlying concerns: stat ABG and CXR were ordered by me; recommend a pulmonary consultation. I have discussed this with MAUREEN Soto (part of primary team), who will f/u with the ABG and CXR results as well as the pulm consult. -EEG cancelled by me at this time as pt does not appear to be in a post-ictal state and his confusion is most likely 2/2 his declining respiratory and cardiac status. -I have order to check urine for tox and infection. Primary team to f/u with results. -Cardiology already on the case. -Discussed plan with primary and nursing. -If EEG is negative, neuro will sign off. Suzie Livingston, ADRIANE, VIDEO SYSTEM REPAIRER d/w Dr. Cantrell Status: Acute
[2018-07-24] MEDS ORDERED: MethylPREDNISolone 40 mg Vial IVP STA (15:21)
[2018-07-24] MEDS: Albuterol-Ipratrop 3 mg / 0.5 (3 ml) UD INH SCH ×2 (15:28→21:19)
--- NOTE | 2018-07-24 15:43 | RAD ---
HISTORY: sob, ams COMPARISON: Chest x-ray performed 07/22/18 TECHNIQUE: Chest, one view. FINDINGS: LUNGS: Increasing dense consolidation which appears in a retrocardiac location as well as along the left heart border. Please note that chest x-ray has limited sensitivity for the detection of pulmonary masses. PLEURA: No significant pleural effusion identified. No definite pneumothorax . CARDIOVASCULAR: Cardiomegaly. Ectatic aorta. Atherosclerotic calcifications of the aorta. OSSEOUS STRUCTURES: Degenerative changes. VISUALIZED UPPER ABDOMEN: Unremarkable. OTHER FINDINGS: None. IMPRESSION: Dense retrocardiac consolidation as well as consolidation along the left heart border. Recommend chest PA and lateral radiographs. Cardiomegaly. Ectatic aorta. Atherosclerotic calcifications of the aorta.
[2018-07-24 15:52] LABS: ARTERIAL BLOOD GAS HCO3 23.1 mmol/L (21-28); ARTERIAL BLOOD GAS HEMOGLOBIN 10.8 g/dL (11.7-17.4); ARTERIAL BLOOD GAS O2 SAT 99.6 % (95-98); ARTERIAL BLOOD GAS PCO2 30 mm/Hg (35-45); ARTERIAL BLOOD GAS PH 7.45 (7.35-7.45); ARTERIAL BLOOD GAS PO2 160 mm/Hg (80-100); ARTERIAL BLOOD GAS TCO2 21.8 mmol/L (22-28)
[2018-07-24 16:16] LABS: SQUAMOUS EPITHIAL < 1 /hpf (0-5); URINE BILIRUBIN NEGATIVE (NEGATIVE); URINE BLOOD NEGATIVE (NEGATIVE); URINE CLARITY Clear (Clear); URINE COLOR Yellow (YELLOW); URINE GLUCOSE (UA) 2+ mg/dL (Normal); URINE LEUKOCYTE ESTERASE NEG Leu/uL (Negative); URINE PROTEIN NEGATIVE (NEGATIVE); URINE UROBILINOGEN NORMAL mg/dL (0.2-1.0)
[2018-07-24 16:20] LABS: BARBITURATES, UR NEGATIVE (NEGATIVE); BENZODIAZEPINES, UR NEGATIVE (NEGATIVE); OPIATES, UR NEGATIVE (NEGATIVE); PHENCYCLIDINE, UR NEGATIVE (NEGATIVE)
[2018-07-24 17:27] LABS: BASO % 0.5 % (0.0-2.0); EOS # 0.1 K/uL (0.0-0.7); EOS % 1.3 % (0.0-4.0); HEMOGLOBIN 14.3 g/dL (12.0-18.0); LYMPH # 1.3 K/uL (1.0-4.3); LYMPH % 15.7 % (20.0-40.0); MEAN CELL VOLUME 94.7 fL (80.0-94.0); MEAN CORPUSCULAR HEMOGLOBIN 32.1 pg (27.0-31.0); MEAN CORPUSCULAR HGB CONC 33.8 g/dL (33.0-37.0); MEAN PLATELET VOLUME 7.9 fL (7.2-11.7); MONO # 0.6 K/uL (0.0-0.8); MONO % 7.3 % (0.0-10.0); NEUT # 6.3 K/uL (1.8-7.0); NEUT % 75.2 % (50.0-75.0); RBC 4.46 Mil/uL (4.40-5.90); RED CELL DISTRIBUTION WIDTH 15.4 % (11.5-14.5); WHITE BLOOD COUNT 8.4 K/uL (4.8-10.8)
[2018-07-24 17:45] LABS: BLOOD UREA NITROGEN 29 mg/dL (9-20); CALCIUM 9.1 mg/dl (8.6-10.4); GFR NON-AFRICAN AMERICAN > 60
--- NOTE | 2018-07-24 18:19 | CP.PCM.CON ---
History of Present Illness - History of Present Illness History of Present Illness: Reason for consultation: Retrocardiac infiltrate/shortness of breath 68-year-old male with history of diabetes, hypertension who was admitted with change in mental status and shortness of breath. Patient also found to have left bundle branch block. I was asked to see patient for retrocardiac infiltrate and shortness of breath. patient received Ativan and is sedated and unable to obtain information. Patient has a long history of smoking Review of Systems - Review of Systems Systems not reviewed;Unavailable: Altered Mental Status Past Patient History - Infectious Disease Hx of Infectious Diseases: None - Past Medical History & Family History Past Medical History?: Yes - Past Social History Smoking Status: Former Smoker - CARDIAC Hx Cardiac Disorders: Yes Hx Hypertension: Yes - PULMONARY Hx Respiratory Disorders: Yes Hx Chronic Obstructive Pulmonary Disease (COPD): Yes - NEUROLOGICAL Hx Neurological Disorder: No - HEENT Hx HEENT Problems: No - RENAL Hx Chronic Kidney Disease: No - ENDOCRINE/METABOLIC Hx Endocrine Disorders: Yes Hx Diabetes Mellitus Type 2: Yes - HEMATOLOGICAL/ONCOLOGICAL Hx Blood Disorders: No - INTEGUMENTARY Hx Dermatological Problems: No - MUSCULOSKELETAL/RHEUMATOLOGICAL Hx Musculoskeletal Disorders: Yes Hx Falls: Yes - GASTROINTESTINAL Hx Gastrointestinal Disorders: No - GENITOURINARY/GYNECOLOGICAL Hx Genitourinary Disorders: No - PSYCHIATRIC Hx Psychophysiologic Disorder: No Hx Substance Use: No - SURGICAL HISTORY Hx Surgeries: Yes Hx Orthopedic Surgery: Yes - ANESTHESIA Hx Anesthesia: Yes Hx Anesthesia Reactions: No Hx Malignant Hyperthermia: No Has any member of the family had a problem w/ anesthesia?: No Meds Allergies/Adverse Reactions: Allergies Allergy/AdvReac Type Severity Reaction Status Date / Time No Known Allergies Allergy Verified 07/22/18 13:34 - Medications Medications: Current Medications Albuterol/Ipratropium (Duoneb 3 Mg/0.5 Mg (3 Ml) Ud) 3 ml INH RQ6 [facility] Last Admin: 07/24/18 15:28 Dose: 3 ml Aspirin (Aspirin) 325 mg PO DAILY [facility] Last Admin: 07/24/18 10:12 Dose: 325 mg Enoxaparin Sodium (Lovenox) 40 mg SC DAILY [facility] Last Admin: 07/24/18 10:12 Dose: 40 mg Ceftriaxone Sodium (Rocephin Iv 1 Gm Duplex) 50 mls @ 100 mls/hr IVPB DAILY [facility]; Protocol Last Admin: 07/24/18 10:13 Dose: 100 mls/hr Losartan Potassium (Cozaar) 25 mg PO DAILY [facility] Last Admin: 07/24/18 14:27 Dose: 25 mg Metoprolol Succinate (Toprol Xl) 25 mg PO DAILY [facility] Last Admin: 07/24/18 10:12 Dose: 25 mg Pantoprazole Sodium (Protonix Ec Tab) 40 mg PO DAILY [facility] Last Admin: 07/24/18 10:12 Dose: 40 mg Rosuvastatin Calcium (Crestor) 10 mg PO [facility] Last Admin: 07/23/18 21:14 Dose: 10 mg Spironolactone (Aldactone) 25 mg PO DAILY [facility] Physical Exam - Head Exam Head Exam: ATRAUMATIC, NORMOCEPHALIC - ENT Exam ENT Exam: Mucous Membranes Moist - Neck Exam Neck exam: Positive for: Normal Inspection - Respiratory Exam Respiratory Exam: Decreased Breath Sounds - Cardiovascular Exam Cardiovascular Exam: REGULAR RHYTHM - GI/Abdominal Exam GI & Abdominal Exam: Normal Bowel Sounds, Soft Results - Vital Signs Recent Vital Signs: Last Vital Signs Temp 97.9 F 07/24/18 16:00 Pulse 72 07/24/18 16:00 Resp 22 07/24/18 16:00 BP 110/58 L 07/24/18 16:00 Pulse Ox 96 07/24/18 16:00 - Labs Result Diagrams: 07/24/18 17:22 07/24/18 17:22 Labs: Laboratory Results - last 24 hr 07/24/18 07/24/18 07/24/18 13:54 13:54 15:45 WBC RBC Hgb Hct MCV MCH MCHC RDW Plt Count MPV Neut % (Auto) Lymph % (Auto) [place] % (Auto) Eos % (Auto) Baso % (Auto) Neut # (Auto) Lymph # (Auto) [place] # (Auto) Eos # (Auto) Baso # (Auto) PT 11.2 INR 1.0 Puncture Site Rba pCO2 30 L pO2 160 H HCO3 23.1 ABG pH 7.45 ABG Total CO2 21.8 L ABG O2 Saturation 99.6 H ABG Base Excess -2.3 L ABG Hemoglobin 10.8 L ABG Carboxyhemoglobin 1.9 H POC ABG HHb (Measured) 0.4 ABG Methemoglobin 2.8 Mao Test Na A-a O2 Difference 38.0 Respiratory Index 0.2 Hgb O2 Saturation 94.9 L FiO2 33.0 Sodium Potassium Chloride Carbon Dioxide Anion Gap BUN Creatinine Est GFR ( Amer) Est GFR (Non-Af Amer) Random Glucose Calcium Magnesium Triglycerides 110 Cholesterol 151 LDL Cholesterol Direct 85 HDL Cholesterol 47 Urine Color Urine Clarity Urine pH Ur Specific [place] Urine Protein Urine Glucose (UA) Urine Ketones Urine Blood Urine Nitrate Urine Bilirubin Urine Urobilinogen Ur Leukocyte Esterase Urine WBC (Auto) Urine RBC (Auto) Ur Squamous Epith Cells Urine Opiates Screen Urine Methadone Screen Ur Barbiturates Screen Ur Phencyclidine Scrn Ur Amphetamines Screen U Benzodiazepines Scrn U Oth Cocaine Metabols U Cannabinoids Screen 07/24/18 07/24/18 07/24/18 15:50 15:50 17:22 WBC 8.4 RBC 4.46 Hgb 14.3 Hct 42.3 MCV 94.7 H D MCH 32.1 H MCHC 33.8 RDW 15.4 H Plt Count 280 MPV 7.9 Neut % (Auto) 75.2 H Lymph % (Auto) 15.7 L [place] % (Auto) 7.3 Eos % (Auto) 1.3 Baso % (Auto) 0.5 Neut # (Auto) 6.3 Lymph # (Auto) 1.3 [place] # (Auto) 0.6 Eos # (Auto) 0.1 Baso # (Auto) 0.0 PT INR Puncture Site pCO2 pO2 HCO3 ABG pH ABG Total CO2 ABG O2 Saturation ABG Base Excess ABG Hemoglobin ABG Carboxyhemoglobin POC ABG HHb (Measured) ABG Methemoglobin Mao Test A-a O2 Difference Respiratory Index Hgb O2 Saturation FiO2 Sodium Potassium Chloride Carbon Dioxide Anion Gap BUN Creatinine Est GFR ( Amer) Est GFR (Non-Af Amer) Random Glucose Calcium Magnesium Triglycerides Cholesterol LDL Cholesterol Direct HDL Cholesterol Urine Color Yellow Urine Clarity Clear Urine pH 5.0 Ur Specific [place] 1.026 Urine Protein Negative Urine Glucose (UA) 2+ H Urine Ketones Negative Urine Blood Negative Urine Nitrate Negative Urine Bilirubin Negative Urine Urobilinogen Normal Ur Leukocyte Esterase Neg Urine WBC (Auto) 7 H Urine RBC (Auto) 1 Ur Squamous Epith Cells < 1 Urine Opiates Screen Negative Urine Methadone Screen Negative Ur Barbiturates Screen Negative Ur Phencyclidine Scrn Negative Ur Amphetamines Screen Negative U Benzodiazepines Scrn Negative U Oth Cocaine Metabols Negative U Cannabinoids Screen Negative 07/24/18 17:22 WBC RBC Hgb Hct MCV MCH MCHC RDW Plt Count MPV Neut % (Auto) Lymph % (Auto) [place] % (Auto) Eos % (Auto) Baso % (Auto) Neut # (Auto) Lymph # (Auto) [place] # (Auto) Eos # (Auto) Baso # (Auto) PT INR Puncture Site pCO2 pO2 HCO3 ABG pH ABG Total CO2 ABG O2 Saturation ABG Base Excess ABG Hemoglobin ABG Carboxyhemoglobin POC ABG HHb (Measured) ABG Methemoglobin Mao Test A-a O2 Difference Respiratory Index Hgb O2 Saturation FiO2 Sodium 142 Potassium 4.4 Chloride 106 Carbon Dioxide 26 Anion Gap 15 BUN 29 H Creatinine 0.9 Est GFR ( Amer) > 60 Est GFR (Non-Af Amer) > 60 Random Glucose 150 H D Calcium 9.1 Magnesium 2.2 Triglycerides Cholesterol LDL Cholesterol Direct HDL Cholesterol Urine Color Urine Clarity Urine pH Ur Specific [place] Urine Protein Urine Glucose (UA) Urine Ketones Urine Blood Urine Nitrate Urine Bilirubin Urine Urobilinogen Ur Leukocyte Esterase Urine WBC (Auto) Urine RBC (Auto) Ur Squamous Epith Cells Urine Opiates Screen Urine Methadone Screen Ur Barbiturates Screen Ur Phencyclidine Scrn Ur Amphetamines Screen U Benzodiazepines Scrn U Oth Cocaine Metabols U Cannabinoids Screen Assessment & Plan (1) SOB (shortness of breath) Status: Acute Comment: Patient with long history of smoking underlying COPD most likely contributing to his shortness of breath. Chest x-ray consistent with retrocardiac infiltrate. Continue ceftriaxone and add azithromycin. Start steroids. Continue nebulizer treatment (2) Pneumonia Status: Acute
--- NOTE | 2018-07-24 19:02 | CP.PCM.PN ---
Subjective - Date & Time of Evaluation Date of Evaluation: 07/24/18 - Subjective Subjective: patient examined today no nausea no vomiting no fever no dizziness no shortness of breath no diarrhea Objective - Vital Signs/Intake and Output Vital Signs (last 24 hours): Temp Pulse Resp BP Pulse Ox 97.9 F 72 22 110/58 L 96 07/24/18 16:00 07/24/18 16:00 07/24/18 16:00 07/24/18 16:00 07/24/18 16:00 Intake and Output: 07/24/18 07/25/18 18:59 06:59 Intake Total 1100 Balance 1100 - Medications Medications: Current Medications Albuterol/Ipratropium (Duoneb 3 Mg/0.5 Mg (3 Ml) Ud) 3 ml INH RQ6 [facility] Last Admin: 07/24/18 15:28 Dose: 3 ml Aspirin (Aspirin) 325 mg PO DAILY [facility] Last Admin: 07/24/18 10:12 Dose: 325 mg Enoxaparin Sodium (Lovenox) 40 mg SC DAILY [facility] Last Admin: 07/24/18 10:12 Dose: 40 mg Ceftriaxone Sodium (Rocephin Iv 1 Gm Duplex) 50 mls @ 100 mls/hr IVPB DAILY [facility]; Protocol Last Admin: 07/24/18 10:13 Dose: 100 mls/hr Azithromycin 500 mg/ Sodium (Chloride) 250 mls @ 250 mls/hr IVPB DAILY [facility]; Protocol Losartan Potassium (Cozaar) 25 mg PO DAILY [facility] Last Admin: 07/24/18 14:27 Dose: 25 mg Methylprednisolone (Solu-Medrol) 40 mg IVP Q12 [facility] Metoprolol Succinate (Toprol Xl) 25 mg PO DAILY [facility] Last Admin: 07/24/18 10:12 Dose: 25 mg Pantoprazole Sodium (Protonix Ec Tab) 40 mg PO DAILY [facility] Last Admin: 07/24/18 10:12 Dose: 40 mg Rosuvastatin Calcium (Crestor) 10 mg PO HS [facility] Last Admin: 07/23/18 21:14 Dose: 10 mg Spironolactone (Aldactone) 25 mg PO DAILY [facility] - Labs Labs: 07/24/18 17:22 07/24/18 17:22 PT 11.2 SECONDS (9.7-12.2) 07/24/18 13:54 INR 1.0 07/24/18 13:54 - Constitutional Appears: Well - Head Exam Head Exam: ATRAUMATIC, NORMAL INSPECTION, NORMOCEPHALIC - Eye Exam Eye Exam: EOMI, Normal appearance, PERRL Pupil Exam: NORMAL ACCOMODATION, PERRL - ENT Exam ENT Exam: Mucous Membranes Moist, Normal Exam - Neck Exam Neck Exam: Full ROM, Normal Inspection. absent: Lymphadenopathy - Respiratory Exam Respiratory Exam: Decreased Breath Sounds - Cardiovascular Exam Cardiovascular Exam: REGULAR RHYTHM, +S1, +S2 - GI/Abdominal Exam GI & Abdominal Exam: Soft, Diminished Bowel Sounds - Rectal Exam Rectal Exam: Deferred - Neurological Exam Neurological Exam: Oriented x3 Assessment and Plan (1) Acute encephalopathy Status: Acute (2) CHF (congestive heart failure) Status: Acute (3) Chest pain Status: Acute (4) Elevated troponin Status: Acute (5) LBBB (left bundle branch block) Status: Acute (6) Pneumonia Status: Acute (7) SOB (shortness of breath) Status: Acute - Assessment and Plan (Free Text) Plan: plan discussed with patient and family labs and vitals reviewed moderate complexity of care medications reviewed aldactone aspirin azithromycin cozaar crestor duoneb lovenox protonix ec tab reocephin solu-medrol toprol xl
[2018-07-24] MEDS: MethylPREDNISolone 40 mg Vial IVP SCH (22:00)
[2018-07-25] MEDS: Albuterol-Ipratrop 3 mg / 0.5 (3 ml) UD INH SCH ×4 (01:32→19:18)
--- NOTE | 2018-07-25 08:08 | CP.PCM.PN ---
<Jess Braga - Last Filed: 07/25/18 16:52> Subjective - Date & Time of Evaluation Date of Evaluation: 07/25/18 Time of Evaluation: 08:07 - Subjective Subjective: Jess Braga, PGY1 Progress Note for Dr Garcia Pt was seen and examined this AM at bedside. Pt is AOx1, only oriented to self. Pt states that he has no acute complaints at this time and that his SOB has improved since admission. Pt had no acute overnight events. Objective - Vital Signs/Intake and Output Vital Signs (last 24 hours): Temp Pulse Resp BP Pulse Ox 98.0 F 65 20 131/75 97 07/25/18 07:00 07/25/18 07:00 07/25/18 07:00 07/25/18 07:00 07/25/18 07:00 Intake and Output: 07/25/18 07/25/18 06:59 18:59 Intake Total 240 Output Total 1 Balance 239 - Medications Medications: Current Medications Albuterol/Ipratropium (Duoneb 3 Mg/0.5 Mg (3 Ml) Ud) 3 ml INH RQ6 [facility] Last Admin: 07/25/18 01:32 Dose: 3 ml Aspirin (Aspirin) 325 mg PO DAILY [facility] Last Admin: 07/24/18 10:12 Dose: 325 mg Enoxaparin Sodium (Lovenox) 40 mg SC DAILY [facility] Last Admin: 07/24/18 10:12 Dose: 40 mg Ceftriaxone Sodium (Rocephin Iv 1 Gm Duplex) 50 mls @ 100 mls/hr IVPB DAILY [facility]; Protocol Last Admin: 07/24/18 10:13 Dose: 100 mls/hr Azithromycin 500 mg/ Sodium (Chloride) 250 mls @ 250 mls/hr IVPB DAILY [facility]; Protocol Losartan Potassium (Cozaar) 25 mg PO DAILY [facility] Last Admin: 07/24/18 14:27 Dose: 25 mg Methylprednisolone (Solu-Medrol) 40 mg IVP Q12 [facility] Last Admin: 07/24/18 22:00 Dose: 40 mg Metoprolol Succinate (Toprol Xl) 25 mg PO DAILY [facility] Last Admin: 07/24/18 10:12 Dose: 25 mg Pantoprazole Sodium (Protonix Ec Tab) 40 mg PO DAILY [facility] Last Admin: 07/24/18 10:12 Dose: 40 mg Rosuvastatin Calcium (Crestor) 10 mg PO HS [facility] Last Admin: 07/24/18 22:02 Dose: Not Given Spironolactone (Aldactone) 25 mg PO DAILY [facility] - Labs Labs: 07/24/18 17:22 07/24/18 17:22 PT 11.2 SECONDS (9.7-12.2) 07/24/18 13:54 INR 1.0 07/24/18 13:54 - Constitutional Appears: Non-toxic, No Acute Distress - Head Exam Head Exam: ATRAUMATIC, NORMAL INSPECTION, NORMOCEPHALIC - Eye Exam Eye Exam: EOMI, Normal appearance, PERRL - Respiratory Exam Respiratory Exam: Clear to Ausculation Bilateral, NORMAL BREATHING PATTERN. absent: Rales, Rhonchi, Wheezes, Respiratory Distress, Stridor - Cardiovascular Exam Cardiovascular Exam: RRR, +S1, +S2. absent: Gallop, Rubs - GI/Abdominal Exam GI & Abdominal Exam: Soft, Normal Bowel Sounds. absent: Guarding, Rigid, Tenderness - Back Exam Back Exam: NORMAL INSPECTION. absent: CVA tenderness (L), CVA tenderness (R) - Neurological Exam Neurological Exam: Alert, Awake. absent: Oriented x3 (oriented only to self) - Psychiatric Exam Psychiatric exam: Normal Affect Assessment and Plan - Assessment and Plan (Free Text) Assessment: Pt is a 68 yo M who presented for confusion and SOB. Plan: LBBB on EKG: - Will need cath, but pt is not oriented at this time - Will await psych and neuro clearance prior to cath SOB: - Rocephin Further recs per Dr. Garcia <Feliz Garcia - Last Filed: 07/27/18 11:13> Objective - Vital Signs/Intake and Output Vital Signs (last 24 hours): Temp Pulse Resp BP Pulse Ox 97.9 F 67 20 126/64 96 07/27/18 07:00 07/27/18 07:00 07/27/18 07:00 07/27/18 07:00 07/27/18 07:00 - Medications Medications: Current Medications Albuterol/Ipratropium (Duoneb 3 Mg/0.5 Mg (3 Ml) Ud) 3 ml INH RQ6 [facility] Last Admin: 07/27/18 07:53 Dose: 3 ml Aspirin (Aspirin) 325 mg PO DAILY [facility] Last Admin: 07/27/18 09:50 Dose: 325 mg Enoxaparin Sodium (Lovenox) 40 mg SC DAILY [facility] Last Admin: 07/27/18 09:51 Dose: 40 mg Azithromycin 500 mg/ Sodium (Chloride) 250 mls @ 250 mls/hr IVPB DAILY [facility]; Protocol Last Admin: 07/27/18 09:50 Dose: 250 mls/hr Losartan Potassium (Cozaar) 25 mg PO DAILY [facility] Last Admin: 07/27/18 09:50 Dose: 25 mg Methylprednisolone (Solu-Medrol) 40 mg IVP Q12 [facility] Last Admin: 07/27/18 09:50 Dose: 40 mg Metoprolol Succinate (Toprol Xl) 25 mg PO DAILY [facility] Last Admin: 07/27/18 09:50 Dose: 25 mg Pantoprazole Sodium (Protonix Ec Tab) 40 mg PO DAILY [facility] Last Admin: 07/27/18 09:50 Dose: 40 mg Rosuvastatin Calcium (Crestor) 10 mg PO HS [facility] Last Admin: 07/26/18 21:44 Dose: 10 mg Spironolactone (Aldactone) 25 mg PO DAILY [facility] Last Admin: 07/27/18 09:50 Dose: 25 mg - Labs Labs: 07/25/18 08:26 07/25/18 08:26 PT 11.2 SECONDS (9.7-12.2) 07/24/18 13:54 INR 1.0 07/24/18 13:54 Assessment and Plan (1) CHF (congestive heart failure) Status: Acute (2) Chest pain Status: Acute (3) SOB (shortness of breath) Status: Acute (4) LBBB (left bundle branch block) Status: Acute (5) Elevated troponin Status: Acute Attending/Attestation - Attestation I have personally seen and examined this patient.: Yes I have fully participated in the care of the patient.: Yes I have reviewed all pertinent clinical information, including history, physical exam and plan: Yes
[2018-07-25 08:33] LABS: BASO % 0.1 % (0.0-2.0); HEMOGLOBIN 14.7 g/dL (12.0-18.0); LYMPH # 1.3 K/uL (1.0-4.3); LYMPH % 13.6 % (20.0-40.0); MEAN PLATELET VOLUME 7.9 fL (7.2-11.7); MONO # 0.6 K/uL (0.0-0.8); MONO % 6.9 % (0.0-10.0); NEUT # 7.4 K/uL (1.8-7.0); NEUT % 79.4 % (50.0-75.0); RBC 4.45 Mil/uL (4.40-5.90); RED CELL DISTRIBUTION WIDTH 15.4 % (11.5-14.5); WHITE BLOOD COUNT 9.4 K/uL (4.8-10.8)
[2018-07-25 08:42] LABS: MEAN CELL VOLUME 97.1 fL (80.0-94.0)
[2018-07-25 08:57] LABS: ALB/GLOB RATIO 1.4 (1.0-2.1); ALBUMIN 3.9 g/dL (3.5-5.0); ALT/SGPT 22 U/L (21-72); AST/SGOT 23 U/L (17-59); BLOOD UREA NITROGEN 29 mg/dL (9-20); CALCIUM 9.5 mg/dl (8.6-10.4); GFR NON-AFRICAN AMERICAN > 60
[2018-07-25] MEDS: Azithromycin 500 MG in Sodium Chloride 0.9% 250 ML IVPB SCH (10:09)
[2018-07-25] MEDS: cefTRIAXone IV 1 gm in Dextros 50 ML IVPB SCH (10:10)
[2018-07-25] MEDS: Enoxaparin 40 mg Syringe SC SCH (10:10)
[2018-07-25] MEDS: Metoprolol Succinate 25 mg XL Tab PO SCH (10:11)
[2018-07-25] MEDS: Pantoprazole 40 mg EC Tab PO SCH (10:11)
[2018-07-25] MEDS: MethylPREDNISolone 40 mg Vial IVP SCH ×2 (10:11→21:20)
--- NOTE | 2018-07-25 11:59 | CP.PCM.PN ---
Subjective - Date & Time of Evaluation Date of Evaluation: 07/25/18 Time of Evaluation: 11:56 - Subjective Subjective: pt still confused , oriented x 1 per psych eval delerious Objective - Vital Signs/Intake and Output Vital Signs (last 24 hours): Temp Pulse Resp BP Pulse Ox 98.0 F 64 20 131/75 97 07/25/18 07:00 07/25/18 08:42 07/25/18 07:00 07/25/18 07:00 07/25/18 07:00 Intake and Output: 07/25/18 07/25/18 06:59 18:59 Intake Total 240 Output Total 1 Balance 239 - Medications Medications: Current Medications Albuterol/Ipratropium (Duoneb 3 Mg/0.5 Mg (3 Ml) Ud) 3 ml INH RQ6 [facility] Last Admin: 07/25/18 01:32 Dose: 3 ml Aspirin (Aspirin) 325 mg PO DAILY [facility] Last Admin: 07/25/18 10:11 Dose: 325 mg Enoxaparin Sodium (Lovenox) 40 mg SC DAILY [facility] Last Admin: 07/25/18 10:10 Dose: 40 mg Ceftriaxone Sodium (Rocephin Iv 1 Gm Duplex) 50 mls @ 100 mls/hr IVPB DAILY [facility]; Protocol Last Admin: 07/25/18 10:10 Dose: 100 mls/hr Azithromycin 500 mg/ Sodium (Chloride) 250 mls @ 250 mls/hr IVPB DAILY [facility]; Protocol Last Admin: 07/25/18 10:09 Dose: 250 mls/hr Losartan Potassium (Cozaar) 25 mg PO DAILY [facility] Last Admin: 07/25/18 10:11 Dose: 25 mg Methylprednisolone (Solu-Medrol) 40 mg IVP Q12 [facility] Last Admin: 07/25/18 10:11 Dose: 40 mg Metoprolol Succinate (Toprol Xl) 25 mg PO DAILY [facility] Last Admin: 07/25/18 10:11 Dose: 25 mg Pantoprazole Sodium (Protonix Ec Tab) 40 mg PO DAILY [facility] Last Admin: 07/25/18 10:11 Dose: 40 mg Rosuvastatin Calcium (Crestor) 10 mg PO HS [facility] Last Admin: 07/24/18 22:02 Dose: Not Given Spironolactone (Aldactone) 25 mg PO DAILY [facility] Last Admin: 07/25/18 10:11 Dose: 25 mg - Labs Labs: 07/25/18 08:26 07/25/18 08:26 PT 11.2 SECONDS (9.7-12.2) 07/24/18 13:54 INR 1.0 07/24/18 13:54 - Constitutional Appears: Well - Head Exam Head Exam: ATRAUMATIC, NORMAL INSPECTION, NORMOCEPHALIC - Eye Exam Eye Exam: EOMI, Normal appearance, PERRL Pupil Exam: NORMAL ACCOMODATION, PERRL - ENT Exam ENT Exam: Mucous Membranes Moist, Normal Exam - Neck Exam Neck Exam: Full ROM, Normal Inspection. absent: Lymphadenopathy - Respiratory Exam Respiratory Exam: Clear to Ausculation Bilateral, NORMAL BREATHING PATTERN - Cardiovascular Exam Cardiovascular Exam: REGULAR RHYTHM, +S1, +S2. absent: Murmur - GI/Abdominal Exam GI & Abdominal Exam: Soft, Normal Bowel Sounds. absent: Tenderness - Extremities Exam Extremities Exam: Full ROM, Normal Capillary Refill, Normal Inspection. absent: Joint Swelling, Pedal Edema - Back Exam Back Exam: NORMAL INSPECTION - Neurological Exam Neurological Exam: Alert, Awake, CN II-XII Intact, Normal Gait - Skin Skin Exam: Dry, Intact, Normal Color, Warm Assessment and Plan (1) CHF (congestive heart failure) Assessment & Plan: cont toprol,losartan,aldactone cardiac cath once cleard by psych and neuro consent to be obtained for procedure on Monday Status: Acute (2) Chest pain Status: Acute (3) SOB (shortness of breath) Status: Acute (4) LBBB (left bundle branch block) Status: Acute (5) Elevated troponin Status: Acute
--- NOTE | 2018-07-25 13:52 | PCM.PSYCH ---
Initial Psychiatric Evaluation - Initial Psychiatric Evaluation Type of Admission: Voluntary Legal Status: Capacity Chief Complaint (in patient's own words): "OK" History of Present Illness and Precipitating Events: The pt is seen, chart reviewed, and case discussed. Consult was requested for pt agitation and confusion. He reportedly had delusional thoughts. Pt is a 68 y/o male single, no children, retired, and lives alone with no past psychiatric hx. Pt remembers being upset yesterday because nurse thought I was exposing myself, but I was not. He says he was brought to the hospital yesterday after he called the police because he saw a lady laying on the floor of his apartment building. When the police arrived, he had to run up and down the stairs and became short of breath. The police called the ambulance for pt and told him they didnt see a person laying on the floor. He denies chest pain at the time of the episode. He denies feeling depressed, anxious, or suicidal. He used to drink a little but does not anymore. He gave up smoking couple of weeks ago. He denies drug use. Nurse reports pt becomes increasing confused at nighttime yesterday 07/24/18 and believed Tele pack is a radio even after being explained it was heart monitor and thought it was day time. He knows todays day/month/year and city, state and previous president but not current ppresdient, name of the hospital or date. He is unable to recall 2/3 words. He can spell 4/5 letters. Past psych hx: denies, but he is also evasive Family psych hx: denies PMHx: CHF, LBBB, pneumonia, acute encephalopathy Current Medications: Active Medications Generic Name Dose Route Start Last Admin Trade Name Freq PRN Reason Stop Dose Admin Albuterol/Ipratropium 3 ml 07/24/18 15:15 07/25/18 13:17 Duoneb 3 Mg/0.5 Mg (3 Ml) Ud INH 3 ml RQ6 [facility] Administration Aspirin 325 mg 07/23/18 10:00 07/25/18 10:11 Aspirin PO 325 mg DAILY [facility] Administration Enoxaparin Sodium 40 mg 07/23/18 10:00 07/25/18 10:10 Lovenox SC 40 mg DAILY [facility] Administration Ceftriaxone Sodium 50 mls @ 100 mls/hr 07/22/18 20:00 07/25/18 10:10 Rocephin Iv 1 Gm Duplex IVPB 100 mls/hr DAILY [facility] Administration Protocol Azithromycin 500 mg/ Sodium 250 mls @ 250 mls/hr 07/25/18 10:00 07/25/18 10:09 Chloride IVPB 250 mls/hr DAILY [facility] Administration Protocol Losartan Potassium 25 mg 07/24/18 14:15 07/25/18 10:11 Cozaar PO 25 mg DAILY [facility] Administration Methylprednisolone 40 mg 07/24/18 22:00 07/25/18 10:11 Solu-Medrol IVP 40 mg Q12 [facility] Administration Metoprolol Succinate 25 mg 07/23/18 10:00 07/25/18 10:11 Toprol Xl PO 25 mg DAILY [facility] Administration Pantoprazole Sodium 40 mg 07/23/18 10:00 07/25/18 10:11 Protonix Ec Tab PO 40 mg DAILY [facility] Administration Rosuvastatin Calcium 10 mg 07/22/18 22:00 07/24/18 22:02 Crestor PO Not Given HS [facility] Spironolactone 25 mg 07/25/18 10:00 07/25/18 10:11 Aldactone PO 25 mg DAILY [facility] Administration Past Psychiatric History - Past Psychiatric History Previous Treatment History: None (unknown, evasive) Pertinent Medical Hx (Current Medical&Sleep Prob, Allergies): Allergies Allergy/AdvReac Type Severity Reaction Status Date / Time No Known Allergies Allergy Verified 07/22/18 13:34 No Known Home Med 07/22/18 Review of Systems - Psychiatric Psychiatric: Abnormal Sleep Pattern, Anxiety, Difficulty Concentrating, Memory Loss. absent: Hallucinations, Homicidal Ideation, Suicidal Ideation Mental Status Examination - Personal Presentation Personal Presentation: Looks stated age - Affect Affect: Constricted - Motor Activity Motor Activity: Calm - Reliability in Providing Information Reliability in Providing Information: Poor, due to cognitve impairment - Speech Speech: Organized - Mood Mood: Anxious - Formal Thought Process Formal Thought Process: No Impairment - Cognitive Functions Orientation: Person, Place, Time Sensorium: Alert Attention/Concentration: Easily distracted Abstract Thinking: Warren Estimate of Intelligence: Average Judgement: Imparied, as evidence by: Poor judgement Memory: Recent imparied as evidence by:Inability to complete 3/3 object recall, Remote impaired as evidenced by: Inability to recall sig life events, Remote impaired as evidenced by: Inability to recall historical events - Risk Risk: Diminished functioning - Strength & Assets Inventory Strength & Assets Inventory: Cooperative DSM 5 DX - DSM 5 DSM 5 Diagnosis: Delirium (now clearing) r/o Dementia, early stages r/o psychosis unspecified - Recommended/Plan of Treatment Treatment Recommendations and Plan of Treatment: No meds, he is not interested prn haldol if agitated Support and psychoed Daily orientation Cleared by psychiatry as he has capacity and is not an imminent risk 33 min
--- NOTE | 2018-07-25 16:20 | CP.PCM.PN ---
Subjective - Date & Time of Evaluation Date of Evaluation: 07/25/18 Time of Evaluation: 12:00 - Subjective Subjective: Patient seen and examined Awake and responsive/confused Afebrile No shortness of breath noted Objective - Vital Signs/Intake and Output Vital Signs (last 24 hours): Temp Pulse Resp BP Pulse Ox 98.0 F 64 20 131/75 97 07/25/18 07:00 07/25/18 08:42 07/25/18 07:00 07/25/18 07:00 07/25/18 07:00 Intake and Output: 07/25/18 07/25/18 06:59 18:59 Intake Total 240 Output Total 1 Balance 239 - Medications Medications: Current Medications Albuterol/Ipratropium (Duoneb 3 Mg/0.5 Mg (3 Ml) Ud) 3 ml INH RQ6 [facility] Last Admin: 07/25/18 13:17 Dose: 3 ml Aspirin (Aspirin) 325 mg PO DAILY [facility] Last Admin: 07/25/18 10:11 Dose: 325 mg Enoxaparin Sodium (Lovenox) 40 mg SC DAILY [facility] Last Admin: 07/25/18 10:10 Dose: 40 mg Ceftriaxone Sodium (Rocephin Iv 1 Gm Duplex) 50 mls @ 100 mls/hr IVPB DAILY [facility]; Protocol Last Admin: 07/25/18 10:10 Dose: 100 mls/hr Azithromycin 500 mg/ Sodium (Chloride) 250 mls @ 250 mls/hr IVPB DAILY [facility]; Protocol Last Admin: 07/25/18 10:09 Dose: 250 mls/hr Losartan Potassium (Cozaar) 25 mg PO DAILY [facility] Last Admin: 07/25/18 10:11 Dose: 25 mg Methylprednisolone (Solu-Medrol) 40 mg IVP Q12 [facility] Last Admin: 07/25/18 10:11 Dose: 40 mg Metoprolol Succinate (Toprol Xl) 25 mg PO DAILY [facility] Last Admin: 07/25/18 10:11 Dose: 25 mg Pantoprazole Sodium (Protonix Ec Tab) 40 mg PO DAILY [facility] Last Admin: 07/25/18 10:11 Dose: 40 mg Rosuvastatin Calcium (Crestor) 10 mg PO HS [facility] Last Admin: 07/24/18 22:02 Dose: Not Given Spironolactone (Aldactone) 25 mg PO DAILY [facility] Last Admin: 07/25/18 10:11 Dose: 25 mg - Labs Labs: 07/25/18 08:26 07/25/18 08:26 PT 11.2 SECONDS (9.7-12.2) 07/24/18 13:54 INR 1.0 07/24/18 13:54 - Head Exam Head Exam: ATRAUMATIC, NORMOCEPHALIC - ENT Exam ENT Exam: Mucous Membranes Moist - Neck Exam Neck Exam: Normal Inspection - Respiratory Exam Respiratory Exam: Clear to Ausculation Bilateral - Cardiovascular Exam Cardiovascular Exam: REGULAR RHYTHM Assessment and Plan (1) SOB (shortness of breath) Assessment & Plan: Secondary COPD Continue nebulizer treatment Continue antibiotics Follow-up chest x-ray Possible cardiac cath on Monday Status: Acute (2) Pneumonia Status: Acute
--- NOTE | 2018-07-25 20:22 | CP.PCM.PN ---
Subjective - Date & Time of Evaluation Date of Evaluation: 07/25/18 Time of Evaluation: 08:00 - Subjective Subjective: patient examined today no nausea no vomiting no shortness of breath no fever no diarrhea no dizziness Objective - Vital Signs/Intake and Output Vital Signs (last 24 hours): Temp Pulse Resp BP Pulse Ox 98.1 F 68 20 142/77 95 07/25/18 16:56 07/25/18 16:56 07/25/18 16:56 07/25/18 16:56 07/25/18 16:56 - Medications Medications: Current Medications Albuterol/Ipratropium (Duoneb 3 Mg/0.5 Mg (3 Ml) Ud) 3 ml INH RQ6 [facility] Last Admin: 07/25/18 19:18 Dose: 3 ml Aspirin (Aspirin) 325 mg PO DAILY [facility] Last Admin: 07/25/18 10:11 Dose: 325 mg Enoxaparin Sodium (Lovenox) 40 mg SC DAILY [facility] Last Admin: 07/25/18 10:10 Dose: 40 mg Azithromycin 500 mg/ Sodium (Chloride) 250 mls @ 250 mls/hr IVPB DAILY [facility]; Protocol Last Admin: 07/25/18 10:09 Dose: 250 mls/hr Losartan Potassium (Cozaar) 25 mg PO DAILY [facility] Last Admin: 07/25/18 10:11 Dose: 25 mg Methylprednisolone (Solu-Medrol) 40 mg IVP Q12 [facility] Last Admin: 07/25/18 10:11 Dose: 40 mg Metoprolol Succinate (Toprol Xl) 25 mg PO DAILY [facility] Last Admin: 07/25/18 10:11 Dose: 25 mg Pantoprazole Sodium (Protonix Ec Tab) 40 mg PO DAILY [facility] Last Admin: 07/25/18 10:11 Dose: 40 mg Rosuvastatin Calcium (Crestor) 10 mg PO HS [facility] Last Admin: 07/24/18 22:02 Dose: Not Given Spironolactone (Aldactone) 25 mg PO DAILY [facility] Last Admin: 07/25/18 10:11 Dose: 25 mg - Labs Labs: 07/25/18 08:26 07/25/18 08:26 PT 11.2 SECONDS (9.7-12.2) 07/24/18 13:54 INR 1.0 07/24/18 13:54 - Constitutional Appears: Well - Head Exam Head Exam: ATRAUMATIC, NORMAL INSPECTION, NORMOCEPHALIC - Eye Exam Eye Exam: EOMI, Normal appearance, PERRL Pupil Exam: NORMAL ACCOMODATION, PERRL - ENT Exam ENT Exam: Mucous Membranes Moist, Normal Exam - Neck Exam Neck Exam: Full ROM, Normal Inspection. absent: Lymphadenopathy - Respiratory Exam Respiratory Exam: Decreased Breath Sounds - Cardiovascular Exam Cardiovascular Exam: REGULAR RHYTHM, +S1, +S2 - GI/Abdominal Exam GI & Abdominal Exam: Soft, Diminished Bowel Sounds - Rectal Exam Rectal Exam: Deferred - Neurological Exam Neurological Exam: Oriented x3 Assessment and Plan (1) Acute encephalopathy Status: Acute (2) CHF (congestive heart failure) Status: Acute (3) Chest pain Status: Acute (4) Elevated troponin Status: Acute (5) LBBB (left bundle branch block) Status: Acute (6) Pneumonia Status: Acute (7) SOB (shortness of breath) Status: Acute - Assessment and Plan (Free Text) Plan: aldactone aspirin azithromycin cozaar crestor duoneb lovenox protonix ec tab reocephin solu-medrol toprol xl plan discussed with patient and family labs and vitals reviewed moderate complexity of care medications reviewed
[2018-07-26] MEDS: Albuterol-Ipratrop 3 mg / 0.5 (3 ml) UD INH SCH ×4 (01:32→19:42)
[2018-07-26] MEDS: Pantoprazole 40 mg EC Tab PO SCH (10:01)
[2018-07-26] MEDS: Metoprolol Succinate 25 mg XL Tab PO SCH (10:01)
[2018-07-26] MEDS: Azithromycin 500 MG in Sodium Chloride 0.9% 250 ML IVPB SCH (10:02)
[2018-07-26] MEDS: MethylPREDNISolone 40 mg Vial IVP SCH ×2 (10:02→21:44)
[2018-07-26] MEDS: Enoxaparin 40 mg Syringe SC SCH (10:02)
--- NOTE | 2018-07-26 13:47 | CP.PCM.PN ---
Subjective - Date & Time of Evaluation Date of Evaluation: 07/26/18 Time of Evaluation: 13:45 - Subjective Subjective: pt more responsive today Objective - Vital Signs/Intake and Output Vital Signs (last 24 hours): Temp Pulse Resp BP Pulse Ox 98 F 82 20 139/68 97 07/26/18 08:00 07/26/18 08:00 07/26/18 08:00 07/26/18 08:00 07/26/18 08:00 Intake and Output: 07/26/18 07/26/18 06:59 18:59 Intake Total 250 Balance 250 - Medications Medications: Current Medications Albuterol/Ipratropium (Duoneb 3 Mg/0.5 Mg (3 Ml) Ud) 3 ml INH RQ6 [facility] Last Admin: 07/26/18 13:29 Dose: 3 ml Aspirin (Aspirin) 325 mg PO DAILY [facility] Last Admin: 07/26/18 10:01 Dose: 325 mg Enoxaparin Sodium (Lovenox) 40 mg SC DAILY [facility] Last Admin: 07/26/18 10:02 Dose: 40 mg Azithromycin 500 mg/ Sodium (Chloride) 250 mls @ 250 mls/hr IVPB DAILY [facility]; Protocol Last Admin: 07/26/18 10:02 Dose: 250 mls/hr Losartan Potassium (Cozaar) 25 mg PO DAILY [facility] Last Admin: 07/26/18 10:02 Dose: 25 mg Methylprednisolone (Solu-Medrol) 40 mg IVP Q12 [facility] Last Admin: 07/26/18 10:02 Dose: 40 mg Metoprolol Succinate (Toprol Xl) 25 mg PO DAILY [facility] Last Admin: 07/26/18 10:01 Dose: 25 mg Pantoprazole Sodium (Protonix Ec Tab) 40 mg PO DAILY [facility] Last Admin: 07/26/18 10:01 Dose: 40 mg Rosuvastatin Calcium (Crestor) 10 mg PO HS [facility] Last Admin: 07/25/18 21:21 Dose: 10 mg Spironolactone (Aldactone) 25 mg PO DAILY [facility] Last Admin: 07/26/18 10:02 Dose: 25 mg - Labs Labs: 07/25/18 08:26 07/25/18 08:26 PT 11.2 SECONDS (9.7-12.2) 07/24/18 13:54 INR 1.0 07/24/18 13:54 - Constitutional Appears: Well - Head Exam Head Exam: ATRAUMATIC, NORMAL INSPECTION, NORMOCEPHALIC - Eye Exam Eye Exam: EOMI, Normal appearance, PERRL Pupil Exam: NORMAL ACCOMODATION, PERRL - ENT Exam ENT Exam: Mucous Membranes Moist, Normal Exam - Neck Exam Neck Exam: Full ROM, Normal Inspection. absent: Lymphadenopathy - Respiratory Exam Respiratory Exam: Clear to Ausculation Bilateral, NORMAL BREATHING PATTERN - Cardiovascular Exam Cardiovascular Exam: REGULAR RHYTHM, +S1, +S2. absent: Murmur - GI/Abdominal Exam GI & Abdominal Exam: Soft, Normal Bowel Sounds. absent: Tenderness - Extremities Exam Extremities Exam: Full ROM, Normal Capillary Refill, Normal Inspection. absent: Joint Swelling, Pedal Edema - Back Exam Back Exam: NORMAL INSPECTION - Neurological Exam Neurological Exam: Alert, Awake, CN II-XII Intact - Psychiatric Exam Psychiatric exam: Normal Mood - Skin Skin Exam: Dry, Intact, Normal Color, Warm Assessment and Plan (1) CHF (congestive heart failure) Assessment & Plan: will need consent for any further ischemic w/u cont CHF meds ( bb,arb,aldactone) Status: Acute (2) Chest pain Status: Acute (3) SOB (shortness of breath) Status: Acute (4) LBBB (left bundle branch block) Status: Acute (5) Elevated troponin Assessment & Plan: cath once MS improves Status: Acute
--- NOTE | 2018-07-26 14:29 | CP.PCM.PN ---
Subjective - Date & Time of Evaluation Date of Evaluation: 07/26/18 Time of Evaluation: 08:45 - Subjective Subjective: patient examined today no dizziness no nausea no vomiting no shortness of breath no fever no diarrhea Objective - Vital Signs/Intake and Output Vital Signs (last 24 hours): Temp Pulse Resp BP Pulse Ox 98 F 82 20 139/68 97 07/26/18 08:00 07/26/18 08:00 07/26/18 08:00 07/26/18 08:00 07/26/18 08:00 Intake and Output: 07/26/18 07/26/18 06:59 18:59 Intake Total 250 Balance 250 - Medications Medications: Current Medications Albuterol/Ipratropium (Duoneb 3 Mg/0.5 Mg (3 Ml) Ud) 3 ml INH RQ6 [facility] Last Admin: 07/26/18 13:29 Dose: 3 ml Aspirin (Aspirin) 325 mg PO DAILY [facility] Last Admin: 07/26/18 10:01 Dose: 325 mg Enoxaparin Sodium (Lovenox) 40 mg SC DAILY [facility] Last Admin: 07/26/18 10:02 Dose: 40 mg Azithromycin 500 mg/ Sodium (Chloride) 250 mls @ 250 mls/hr IVPB DAILY [facility]; Protocol Last Admin: 07/26/18 10:02 Dose: 250 mls/hr Losartan Potassium (Cozaar) 25 mg PO DAILY [facility] Last Admin: 07/26/18 10:02 Dose: 25 mg Methylprednisolone (Solu-Medrol) 40 mg IVP Q12 [facility] Last Admin: 07/26/18 10:02 Dose: 40 mg Metoprolol Succinate (Toprol Xl) 25 mg PO DAILY [facility] Last Admin: 07/26/18 10:01 Dose: 25 mg Pantoprazole Sodium (Protonix Ec Tab) 40 mg PO DAILY [facility] Last Admin: 07/26/18 10:01 Dose: 40 mg Rosuvastatin Calcium (Crestor) 10 mg PO HS [facility] Last Admin: 07/25/18 21:21 Dose: 10 mg Spironolactone (Aldactone) 25 mg PO DAILY [facility] Last Admin: 07/26/18 10:02 Dose: 25 mg - Labs Labs: 07/25/18 08:26 07/25/18 08:26 PT 11.2 SECONDS (9.7-12.2) 07/24/18 13:54 INR 1.0 07/24/18 13:54 - Constitutional Appears: Well - Head Exam Head Exam: ATRAUMATIC, NORMAL INSPECTION, NORMOCEPHALIC - Eye Exam Eye Exam: EOMI, Normal appearance, PERRL Pupil Exam: NORMAL ACCOMODATION, PERRL - ENT Exam ENT Exam: Mucous Membranes Moist, Normal Exam - Neck Exam Neck Exam: Full ROM, Normal Inspection. absent: Lymphadenopathy - Respiratory Exam Respiratory Exam: Decreased Breath Sounds - Cardiovascular Exam Cardiovascular Exam: REGULAR RHYTHM, +S1, +S2 - GI/Abdominal Exam GI & Abdominal Exam: Soft, Diminished Bowel Sounds - Rectal Exam Rectal Exam: Deferred - Neurological Exam Neurological Exam: Oriented x3 Assessment and Plan (1) Acute encephalopathy Status: Acute (2) CHF (congestive heart failure) Status: Acute (3) Chest pain Status: Acute (4) Elevated troponin Status: Acute (5) LBBB (left bundle branch block) Status: Acute (6) Pneumonia Status: Acute (7) SOB (shortness of breath) Status: Acute - Assessment and Plan (Free Text) Plan: aldactone aspirin azithromycin cozaar crestor duoneb lovenox protonix ec tab reocephin solu-medrol toprol xl plan discussed with patient and family labs and vitals reviewed moderate complexity of care medications reviewed Patient is more alert awake still confused out of bed to the chair patient states can he go home before Monday Call the regional tanker truck driver for further work-up patient needs ischemic work-up Continue current medications Status post pulmonary status post cardiology hemoglobin hematocrit 14.7 and 40.3 respectively BUN 29 Creatinine 0.8 Potassium 4.5 Patient may need cath
--- NOTE | 2018-07-26 16:25 | CP.PCM.PN ---
Subjective - Date & Time of Evaluation Date of Evaluation: 07/26/18 Time of Evaluation: 10:00 - Subjective Subjective: Patient seen and examined More responsive but confused afebrile No shortness of breath/cough Objective - Vital Signs/Intake and Output Vital Signs (last 24 hours): Temp Pulse Resp BP Pulse Ox 97.8 F 79 20 170/81 H 98 07/26/18 15:44 07/26/18 15:44 07/26/18 15:44 07/26/18 15:44 07/26/18 15:44 Intake and Output: 07/26/18 07/26/18 06:59 18:59 Intake Total 250 Balance 250 - Medications Medications: Current Medications Albuterol/Ipratropium (Duoneb 3 Mg/0.5 Mg (3 Ml) Ud) 3 ml INH RQ6 [facility] Last Admin: 07/26/18 13:29 Dose: 3 ml Aspirin (Aspirin) 325 mg PO DAILY [facility] Last Admin: 07/26/18 10:01 Dose: 325 mg Enoxaparin Sodium (Lovenox) 40 mg SC DAILY [facility] Last Admin: 07/26/18 10:02 Dose: 40 mg Azithromycin 500 mg/ Sodium (Chloride) 250 mls @ 250 mls/hr IVPB DAILY [facility]; Protocol Last Admin: 07/26/18 10:02 Dose: 250 mls/hr Losartan Potassium (Cozaar) 25 mg PO DAILY [facility] Last Admin: 07/26/18 10:02 Dose: 25 mg Methylprednisolone (Solu-Medrol) 40 mg IVP Q12 [facility] Last Admin: 07/26/18 10:02 Dose: 40 mg Metoprolol Succinate (Toprol Xl) 25 mg PO DAILY [facility] Last Admin: 07/26/18 10:01 Dose: 25 mg Pantoprazole Sodium (Protonix Ec Tab) 40 mg PO DAILY [facility] Last Admin: 07/26/18 10:01 Dose: 40 mg Rosuvastatin Calcium (Crestor) 10 mg PO HS [facility] Last Admin: 07/25/18 21:21 Dose: 10 mg Spironolactone (Aldactone) 25 mg PO DAILY [facility] Last Admin: 07/26/18 10:02 Dose: 25 mg - Labs Labs: 07/25/18 08:26 07/25/18 08:26 PT 11.2 SECONDS (9.7-12.2) 07/24/18 13:54 INR 1.0 07/24/18 13:54 - Head Exam Head Exam: ATRAUMATIC, NORMOCEPHALIC - ENT Exam ENT Exam: Mucous Membranes Moist - Neck Exam Neck Exam: Normal Inspection - Respiratory Exam Respiratory Exam: Decreased Breath Sounds - Cardiovascular Exam Cardiovascular Exam: REGULAR RHYTHM - GI/Abdominal Exam GI & Abdominal Exam: Soft, Normal Bowel Sounds Assessment and Plan (1) SOB (shortness of breath) Assessment & Plan: Continue nebulizer treatment Continue antibiotics Repeat chest x-ray Clinical improvement Status: Acute (2) Pneumonia Status: Acute
[2018-07-27] MEDS: Albuterol-Ipratrop 3 mg / 0.5 (3 ml) UD INH SCH ×4 (01:38→19:48)
[2018-07-27] MEDS: Azithromycin 500 MG in Sodium Chloride 0.9% 250 ML IVPB SCH (09:50)
[2018-07-27] MEDS: Metoprolol Succinate 25 mg XL Tab PO SCH (09:50)
[2018-07-27] MEDS: Pantoprazole 40 mg EC Tab PO SCH (09:50)
[2018-07-27] MEDS: MethylPREDNISolone 40 mg Vial IVP SCH ×2 (09:50→21:50)
[2018-07-27] MEDS: Enoxaparin 40 mg Syringe SC SCH (09:51)
--- NOTE | 2018-07-27 11:15 | CP.PCM.PN ---
Subjective - Date & Time of Evaluation Date of Evaluation: 07/27/18 Time of Evaluation: 11:14 - Subjective Subjective: ? dementia vs. delirium stable Objective - Vital Signs/Intake and Output Vital Signs (last 24 hours): Temp Pulse Resp BP Pulse Ox 97.9 F 67 20 126/64 96 07/27/18 07:00 07/27/18 07:00 07/27/18 07:00 07/27/18 07:00 07/27/18 07:00 - Medications Medications: Current Medications Albuterol/Ipratropium (Duoneb 3 Mg/0.5 Mg (3 Ml) Ud) 3 ml INH RQ6 [facility] Last Admin: 07/27/18 07:53 Dose: 3 ml Aspirin (Aspirin) 325 mg PO DAILY [facility] Last Admin: 07/27/18 09:50 Dose: 325 mg Enoxaparin Sodium (Lovenox) 40 mg SC DAILY [facility] Last Admin: 07/27/18 09:51 Dose: 40 mg Azithromycin 500 mg/ Sodium (Chloride) 250 mls @ 250 mls/hr IVPB DAILY [facility]; Protocol Last Admin: 07/27/18 09:50 Dose: 250 mls/hr Losartan Potassium (Cozaar) 25 mg PO DAILY [facility] Last Admin: 07/27/18 09:50 Dose: 25 mg Methylprednisolone (Solu-Medrol) 40 mg IVP Q12 [facility] Last Admin: 07/27/18 09:50 Dose: 40 mg Metoprolol Succinate (Toprol Xl) 25 mg PO DAILY [facility] Last Admin: 07/27/18 09:50 Dose: 25 mg Pantoprazole Sodium (Protonix Ec Tab) 40 mg PO DAILY [facility] Last Admin: 07/27/18 09:50 Dose: 40 mg Rosuvastatin Calcium (Crestor) 10 mg PO HS [facility] Last Admin: 07/26/18 21:44 Dose: 10 mg Spironolactone (Aldactone) 25 mg PO DAILY [facility] Last Admin: 07/27/18 09:50 Dose: 25 mg - Labs Labs: 07/25/18 08:26 07/25/18 08:26 PT 11.2 SECONDS (9.7-12.2) 07/24/18 13:54 INR 1.0 07/24/18 13:54 - Constitutional Appears: Well - Head Exam Head Exam: ATRAUMATIC, NORMAL INSPECTION, NORMOCEPHALIC - Eye Exam Eye Exam: EOMI, Normal appearance, PERRL Pupil Exam: NORMAL ACCOMODATION, PERRL - ENT Exam ENT Exam: Mucous Membranes Moist, Normal Exam - Neck Exam Neck Exam: Full ROM, Normal Inspection. absent: Lymphadenopathy - Respiratory Exam Respiratory Exam: Clear to Ausculation Bilateral, NORMAL BREATHING PATTERN - Cardiovascular Exam Cardiovascular Exam: REGULAR RHYTHM, RRR, +S1, +S2, Murmur - GI/Abdominal Exam GI & Abdominal Exam: Soft, Normal Bowel Sounds. absent: Tenderness - Extremities Exam Extremities Exam: Full ROM, Normal Capillary Refill, Normal Inspection. absent: Joint Swelling, Pedal Edema - Back Exam Back Exam: NORMAL INSPECTION - Neurological Exam Neurological Exam: Alert, Awake, CN II-XII Intact, Normal Gait, Oriented x3 - Psychiatric Exam Psychiatric exam: Normal Affect, Normal Mood - Skin Skin Exam: Dry, Intact, Normal Color, Warm Assessment and Plan (1) CHF (congestive heart failure) Assessment & Plan: cont bb , raas modulators plan for cath if consent obtained Status: Acute (2) Chest pain Status: Acute (3) SOB (shortness of breath) Status: Acute (4) LBBB (left bundle branch block) Status: Acute (5) Elevated troponin Status: Acute
--- NOTE | 2018-07-27 16:39 | CP.PCM.PN ---
Subjective - Date & Time of Evaluation Date of Evaluation: 07/27/18 Time of Evaluation: 15:00 - Subjective Subjective: Patient seen and examined Much more awake and responsive Afebrile Denies any complaints No chest pain Objective - Vital Signs/Intake and Output Vital Signs (last 24 hours): Temp Pulse Resp BP Pulse Ox 97.9 F 60 20 126/64 96 07/27/18 07:00 07/27/18 12:00 07/27/18 07:00 07/27/18 07:00 07/27/18 07:00 - Medications Medications: Current Medications Albuterol/Ipratropium (Duoneb 3 Mg/0.5 Mg (3 Ml) Ud) 3 ml INH RQ6 [facility] Last Admin: 07/27/18 13:25 Dose: 3 ml Aspirin (Aspirin) 325 mg PO DAILY [facility] Last Admin: 07/27/18 09:50 Dose: 325 mg Enoxaparin Sodium (Lovenox) 40 mg SC DAILY [facility] Last Admin: 07/27/18 09:51 Dose: 40 mg Azithromycin 500 mg/ Sodium (Chloride) 250 mls @ 250 mls/hr IVPB DAILY [facility]; Protocol Last Admin: 07/27/18 09:50 Dose: 250 mls/hr Losartan Potassium (Cozaar) 25 mg PO DAILY [facility] Last Admin: 07/27/18 09:50 Dose: 25 mg Methylprednisolone (Solu-Medrol) 40 mg IVP Q12 [facility] Last Admin: 07/27/18 09:50 Dose: 40 mg Metoprolol Succinate (Toprol Xl) 25 mg PO DAILY [facility] Last Admin: 07/27/18 09:50 Dose: 25 mg Pantoprazole Sodium (Protonix Ec Tab) 40 mg PO DAILY [facility] Last Admin: 07/27/18 09:50 Dose: 40 mg Rosuvastatin Calcium (Crestor) 10 mg PO HS [facility] Last Admin: 07/26/18 21:44 Dose: 10 mg Spironolactone (Aldactone) 25 mg PO DAILY [facility] Last Admin: 07/27/18 09:50 Dose: 25 mg - Labs Labs: 07/25/18 08:26 07/25/18 08:26 PT 11.2 SECONDS (9.7-12.2) 07/24/18 13:54 INR 1.0 07/24/18 13:54 - Head Exam Head Exam: ATRAUMATIC, NORMOCEPHALIC - ENT Exam ENT Exam: Mucous Membranes Moist - Neck Exam Neck Exam: Normal Inspection - Respiratory Exam Respiratory Exam: Clear to Ausculation Bilateral - Cardiovascular Exam Cardiovascular Exam: REGULAR RHYTHM - GI/Abdominal Exam GI & Abdominal Exam: Soft, Normal Bowel Sounds Assessment and Plan (1) SOB (shortness of breath) Status: Acute (2) Pneumonia Assessment & Plan: Cough/chest pain and shortness of breath much improved Taper steroids and continue nebulizer treatment Continue antibiotics Status: Acute
--- NOTE | 2018-07-27 19:51 | CP.PCM.PN ---
Subjective - Date & Time of Evaluation Date of Evaluation: 07/27/18 - Subjective Subjective: patient seen today patient denies fever, nuasea, vomiting, dizziness, diarrhea, shortness of breath Objective - Vital Signs/Intake and Output Vital Signs (last 24 hours): Temp Pulse Resp BP Pulse Ox 97.9 F 73 20 142/81 94 L 07/27/18 15:00 07/27/18 15:00 07/27/18 15:00 07/27/18 15:00 07/27/18 15:00 - Medications Medications: Current Medications Albuterol/Ipratropium (Duoneb 3 Mg/0.5 Mg (3 Ml) Ud) 3 ml INH RQ6 [facility] Last Admin: 07/27/18 19:48 Dose: 3 ml Aspirin (Aspirin) 325 mg PO DAILY [facility] Last Admin: 07/27/18 09:50 Dose: 325 mg Enoxaparin Sodium (Lovenox) 40 mg SC DAILY [facility] Last Admin: 07/27/18 09:51 Dose: 40 mg Azithromycin 500 mg/ Sodium (Chloride) 250 mls @ 250 mls/hr IVPB DAILY [facility]; Protocol Last Admin: 07/27/18 09:50 Dose: 250 mls/hr Losartan Potassium (Cozaar) 25 mg PO DAILY [facility] Last Admin: 07/27/18 09:50 Dose: 25 mg Methylprednisolone (Solu-Medrol) 20 mg IVP Q12 [facility] Metoprolol Succinate (Toprol Xl) 25 mg PO DAILY [facility] Last Admin: 07/27/18 09:50 Dose: 25 mg Pantoprazole Sodium (Protonix Ec Tab) 40 mg PO DAILY [facility] Last Admin: 07/27/18 09:50 Dose: 40 mg Rosuvastatin Calcium (Crestor) 10 mg PO HS [facility] Last Admin: 07/26/18 21:44 Dose: 10 mg Spironolactone (Aldactone) 25 mg PO DAILY [facility] Last Admin: 07/27/18 09:50 Dose: 25 mg - Labs Labs: 07/25/18 08:26 07/25/18 08:26 PT 11.2 SECONDS (9.7-12.2) 07/24/18 13:54 INR 1.0 07/24/18 13:54 - Constitutional Appears: Well - Head Exam Head Exam: ATRAUMATIC, NORMAL INSPECTION, NORMOCEPHALIC - Eye Exam Eye Exam: EOMI, Normal appearance, PERRL Pupil Exam: NORMAL ACCOMODATION, PERRL - ENT Exam ENT Exam: Mucous Membranes Moist, Normal Exam - Neck Exam Neck Exam: Full ROM, Normal Inspection. absent: Lymphadenopathy - Respiratory Exam Respiratory Exam: Decreased Breath Sounds - Cardiovascular Exam Cardiovascular Exam: REGULAR RHYTHM, +S1, +S2 - GI/Abdominal Exam GI & Abdominal Exam: Soft, Diminished Bowel Sounds - Rectal Exam Rectal Exam: Deferred - Neurological Exam Neurological Exam: Oriented x3 Assessment and Plan (1) Acute encephalopathy Status: Acute (2) CHF (congestive heart failure) Status: Acute (3) Chest pain Status: Acute (4) Elevated troponin Status: Acute (5) LBBB (left bundle branch block) Status: Acute (6) Pneumonia Status: Acute (7) SOB (shortness of breath) Status: Acute - Assessment and Plan (Free Text) Plan: plan discussed with patient and family labs and vitals reviewed moderate complexity of care medications reviewed aldactone aspirin azithromycin cozaar crestor duoneb lovenox protonix ec tab reocephin solu-medrol toprol xl
[2018-07-28] MEDS: Albuterol-Ipratrop 3 mg / 0.5 (3 ml) UD INH SCH ×4 (02:09→19:47)
[2018-07-28] MEDS: Azithromycin 500 MG in Sodium Chloride 0.9% 250 ML IVPB SCH (09:36)
[2018-07-28] MEDS: Enoxaparin 40 mg Syringe SC SCH (09:37)
[2018-07-28] MEDS: MethylPREDNISolone 40 mg Vial IVP SCH ×2 (09:37→21:30)
[2018-07-28] MEDS: Metoprolol Succinate 25 mg XL Tab PO SCH (09:38)
[2018-07-28] MEDS: Pantoprazole 40 mg EC Tab PO SCH (09:38)
--- NOTE | 2018-07-28 15:42 | CP.PCM.PN ---
Subjective - Date & Time of Evaluation Date of Evaluation: 07/28/18 - Subjective Subjective: patient examined today no nausea no vomiting no dizziness no diarrhea no fever no shortness of breath Objective - Vital Signs/Intake and Output Vital Signs (last 24 hours): Temp Pulse Resp BP Pulse Ox 98 F 62 20 120/60 94 L 07/28/18 08:00 07/28/18 10:14 07/28/18 08:00 07/28/18 08:00 07/28/18 08:00 Intake and Output: 07/28/18 07/28/18 06:59 18:59 Intake Total 450 Output Total 250 Balance 200 - Medications Medications: Current Medications Albuterol/Ipratropium (Duoneb 3 Mg/0.5 Mg (3 Ml) Ud) 3 ml INH RQ6 [facility] Last Admin: 07/28/18 09:44 Dose: 3 ml Aspirin (Aspirin) 325 mg PO DAILY [facility] Last Admin: 07/28/18 09:37 Dose: 325 mg Enoxaparin Sodium (Lovenox) 40 mg SC DAILY [facility] Last Admin: 07/28/18 09:37 Dose: 40 mg Azithromycin 500 mg/ Sodium (Chloride) 250 mls @ 250 mls/hr IVPB DAILY [facility]; Protocol Last Admin: 07/28/18 09:36 Dose: 250 mls/hr Losartan Potassium (Cozaar) 25 mg PO DAILY [facility] Last Admin: 07/28/18 09:37 Dose: 25 mg Methylprednisolone (Solu-Medrol) 20 mg IVP Q12 [facility] Last Admin: 07/28/18 09:37 Dose: 20 mg Metoprolol Succinate (Toprol Xl) 25 mg PO DAILY [facility] Last Admin: 07/28/18 09:38 Dose: 25 mg Pantoprazole Sodium (Protonix Ec Tab) 40 mg PO DAILY [facility] Last Admin: 07/28/18 09:38 Dose: 40 mg Rosuvastatin Calcium (Crestor) 10 mg PO HS [facility] Last Admin: 07/27/18 21:50 Dose: 10 mg Spironolactone (Aldactone) 25 mg PO DAILY [facility] Last Admin: 07/28/18 09:37 Dose: 25 mg - Labs Labs: 07/25/18 08:26 07/25/18 08:26 PT 11.2 SECONDS (9.7-12.2) 07/24/18 13:54 INR 1.0 07/24/18 13:54 - Constitutional Appears: Well - Head Exam Head Exam: ATRAUMATIC, NORMAL INSPECTION, NORMOCEPHALIC - Eye Exam Eye Exam: EOMI, Normal appearance, PERRL Pupil Exam: NORMAL ACCOMODATION, PERRL - ENT Exam ENT Exam: Mucous Membranes Moist, Normal Exam - Neck Exam Neck Exam: Full ROM, Normal Inspection. absent: Lymphadenopathy - Respiratory Exam Respiratory Exam: Decreased Breath Sounds - Cardiovascular Exam Cardiovascular Exam: REGULAR RHYTHM, +S1, +S2 - GI/Abdominal Exam GI & Abdominal Exam: Soft, Diminished Bowel Sounds - Rectal Exam Rectal Exam: Deferred - Neurological Exam Neurological Exam: Oriented x3 Assessment and Plan (1) Acute encephalopathy Status: Acute (2) CHF (congestive heart failure) Status: Acute (3) Chest pain Status: Acute (4) Elevated troponin Status: Acute (5) LBBB (left bundle branch block) Status: Acute (6) Pneumonia Status: Acute (7) SOB (shortness of breath) Status: Acute - Assessment and Plan (Free Text) Plan: aldactone aspirin azithromycin cozaar crestor duoneb lovenox protonix ec tab reocephin solu-medrol toprol xl plan discussed with patient labs reviewed vitals reviewed moderate complexity of care medications reviewed
--- NOTE | 2018-07-28 16:49 | CP.PCM.PN ---
Subjective - Date & Time of Evaluation Date of Evaluation: 07/28/18 Time of Evaluation: 14:00 - Subjective Subjective: Patient seen and examined Awake and responsive In no distress Afebrile Objective - Vital Signs/Intake and Output Vital Signs (last 24 hours): Temp Pulse Resp BP Pulse Ox 97.9 F 60 20 135/67 93 L 07/28/18 16:00 07/28/18 16:00 07/28/18 16:00 07/28/18 16:00 07/28/18 16:00 Intake and Output: 07/28/18 07/28/18 06:59 18:59 Intake Total 450 Output Total 250 Balance 200 - Medications Medications: Current Medications Albuterol/Ipratropium (Duoneb 3 Mg/0.5 Mg (3 Ml) Ud) 3 ml INH RQ6 [facility] Last Admin: 07/28/18 15:50 Dose: 3 ml Aspirin (Aspirin) 325 mg PO DAILY [facility] Last Admin: 07/28/18 09:37 Dose: 325 mg Enoxaparin Sodium (Lovenox) 40 mg SC DAILY [facility] Last Admin: 07/28/18 09:37 Dose: 40 mg Azithromycin 500 mg/ Sodium (Chloride) 250 mls @ 250 mls/hr IVPB DAILY [facility]; Protocol Last Admin: 07/28/18 09:36 Dose: 250 mls/hr Losartan Potassium (Cozaar) 25 mg PO DAILY [facility] Last Admin: 07/28/18 09:37 Dose: 25 mg Methylprednisolone (Solu-Medrol) 20 mg IVP Q12 [facility] Last Admin: 07/28/18 09:37 Dose: 20 mg Metoprolol Succinate (Toprol Xl) 25 mg PO DAILY [facility] Last Admin: 07/28/18 09:38 Dose: 25 mg Pantoprazole Sodium (Protonix Ec Tab) 40 mg PO DAILY [facility] Last Admin: 07/28/18 09:38 Dose: 40 mg Rosuvastatin Calcium (Crestor) 10 mg PO HS [facility] Last Admin: 07/27/18 21:50 Dose: 10 mg Spironolactone (Aldactone) 25 mg PO DAILY [facility] Last Admin: 07/28/18 09:37 Dose: 25 mg - Labs Labs: 07/25/18 08:26 07/25/18 08:26 PT 11.2 SECONDS (9.7-12.2) 07/24/18 13:54 INR 1.0 07/24/18 13:54 - Head Exam Head Exam: ATRAUMATIC, NORMOCEPHALIC - ENT Exam ENT Exam: Mucous Membranes Moist - Neck Exam Neck Exam: Normal Inspection - Respiratory Exam Respiratory Exam: Decreased Breath Sounds - Cardiovascular Exam Cardiovascular Exam: REGULAR RHYTHM - GI/Abdominal Exam GI & Abdominal Exam: Soft, Normal Bowel Sounds - Extremities Exam Extremities Exam: Full ROM, Normal Inspection - Neurological Exam Neurological Exam: Alert Assessment and Plan (1) SOB (shortness of breath) Assessment & Plan: Decreased breath sounds in the left lower lobe CAT scan of the chest Continue antibiotics Status: Acute (2) Pneumonia Status: Acute
[2018-07-29] MEDS: Albuterol-Ipratrop 3 mg / 0.5 (3 ml) UD INH SCH ×2 (02:34→09:10)
[2018-07-29] MEDS: Azithromycin 500 MG in Sodium Chloride 0.9% 250 ML IVPB SCH (09:40)
[2018-07-29] MEDS: Metoprolol Succinate 25 mg XL Tab PO SCH (09:40)
[2018-07-29] MEDS: Enoxaparin 40 mg Syringe SC SCH (09:40)
[2018-07-29] MEDS: MethylPREDNISolone 40 mg Vial IVP SCH ×2 (09:41→21:48)
[2018-07-29] MEDS: Pantoprazole 40 mg EC Tab PO SCH (09:41)
--- NOTE | 2018-07-29 14:41 | CP.PCM.PN ---
Subjective - Date & Time of Evaluation Date of Evaluation: 07/29/18 - Subjective Subjective: patient examined today no nausea no vomitng no dizziness no diarrhea no shortness of breath no fever Objective - Vital Signs/Intake and Output Vital Signs (last 24 hours): Temp Pulse Resp BP Pulse Ox 97.3 F L 63 20 126/70 95 07/29/18 07:00 07/29/18 10:00 07/29/18 07:00 07/29/18 07:00 07/29/18 07:00 - Medications Medications: Current Medications Albuterol/Ipratropium (Duoneb 3 Mg/0.5 Mg (3 Ml) Ud) 3 ml INH RQ6 [facility] Last Admin: 07/29/18 09:10 Dose: 3 ml Aspirin (Aspirin) 325 mg PO DAILY [facility] Last Admin: 07/29/18 09:41 Dose: 325 mg Enoxaparin Sodium (Lovenox) 40 mg SC DAILY [facility] Last Admin: 07/29/18 09:40 Dose: 40 mg Azithromycin 500 mg/ Sodium (Chloride) 250 mls @ 250 mls/hr IVPB DAILY [facility]; Protocol Last Admin: 07/29/18 09:40 Dose: 250 mls/hr Losartan Potassium (Cozaar) 25 mg PO DAILY [facility] Last Admin: 07/29/18 09:41 Dose: 25 mg Methylprednisolone (Solu-Medrol) 20 mg IVP Q12 [facility] Last Admin: 07/29/18 09:41 Dose: 20 mg Metoprolol Succinate (Toprol Xl) 25 mg PO DAILY [facility] Last Admin: 07/29/18 09:40 Dose: 25 mg Pantoprazole Sodium (Protonix Ec Tab) 40 mg PO DAILY [facility] Last Admin: 07/29/18 09:41 Dose: 40 mg Rosuvastatin Calcium (Crestor) 10 mg PO HS [facility] Last Admin: 07/28/18 21:31 Dose: 10 mg Spironolactone (Aldactone) 25 mg PO DAILY [facility] Last Admin: 07/29/18 09:41 Dose: 25 mg - Labs Labs: 07/25/18 08:26 07/25/18 08:26 PT 11.2 SECONDS (9.7-12.2) 07/24/18 13:54 INR 1.0 07/24/18 13:54 - Constitutional Appears: Well - Head Exam Head Exam: ATRAUMATIC, NORMAL INSPECTION, NORMOCEPHALIC - Eye Exam Eye Exam: EOMI, Normal appearance, PERRL Pupil Exam: NORMAL ACCOMODATION, PERRL - ENT Exam ENT Exam: Mucous Membranes Moist, Normal Exam - Neck Exam Neck Exam: Full ROM, Normal Inspection. absent: Lymphadenopathy - Respiratory Exam Respiratory Exam: Decreased Breath Sounds - Cardiovascular Exam Cardiovascular Exam: REGULAR RHYTHM, +S1, +S2 - GI/Abdominal Exam GI & Abdominal Exam: Soft, Diminished Bowel Sounds - Rectal Exam Rectal Exam: Deferred - Neurological Exam Neurological Exam: Oriented x3 Assessment and Plan (1) Acute encephalopathy Status: Acute (2) CHF (congestive heart failure) Status: Acute (3) Chest pain Status: Acute (4) Elevated troponin Status: Acute (5) LBBB (left bundle branch block) Status: Acute (6) Pneumonia Status: Acute (7) SOB (shortness of breath) Status: Acute - Assessment and Plan (Free Text) Plan: medications reviewed aldactone aspirin azithromycin cozaar crestor duoneb lovenox protonix ec tab reocephin solu-medrol toprol xl plan discussed with patient labs reviewed vitals reviewed moderate complexity of care
--- NOTE | 2018-07-29 17:03 | CT ---
Date of service: 07/28/2018 PROCEDURE: CT Chest without contrast HISTORY: Dense infiltrate left lower lobe COMPARISON: Comparison made with prior chest radiograph 07/24/2018 TECHNIQUE: Contiguous axial images were obtained through the chest without intravenous contrast enhancement. Sagittal and coronal reconstructions were performed. Radiation dose: Total exam DLP = 532.9 mGy-cm. This CT exam was performed using one or more of the following dose reduction techniques: Automated exposure control, adjustment of the mA and/or kV according to patient size, and/or use of iterative reconstruction technique. FINDINGS: LUNGS: There is a large parasagittal hernia in the left posterior lower lung field that contains debris-filled stomach. Some mild compressive type atelectasis is felt to be present in the left lower lobe as well. No acute consolidation. Minimal right basilar atelectasis. Remaining lung rodriges clear. The lobular emphysematous changes are present upper lobe predominance. MEDIASTINUM: The heart size is upper limits of normal/borderline enlarged.. No significant pericardial effusion. Unremarkable thoracic aorta. No aneurysm. Ascending thoracic aorta measures approximately 3.5 cm and descending thoracic aorta measures approximately 2.8 cm. Mild aortic atherosclerotic calcification. Pulmonary trunk measures approximately 2.8 cm.. Trachea midline and patent with no large central endoluminal lesions. Small hiatal hernia. PLEURA: No pleural fluid. No pneumothorax. BONES: Note is made of a expansile lytic lesion involving the posterior aspect of the T7 vertebral body segment including the right pedicle. There is soft tissue seen extending posteriorly on the right-side within the spinal canal with which has also resulted in lobulated widening of the AP diameter of the canal. Epidural soft tissue extends posteriorly on the right side with resultant compression and leftward displacement of the thoracic spinal cord. Recommend pre and post-contrast MRI of the thoracic spine for further evaluation of this lesion. UPPER ABDOMEN: Layering sludge felt to be present within the distended gallbladder. OTHER FINDINGS: None. IMPRESSION: There is a large left sided parasagittal hernia containing debris-filled stomach. Mild associated left basilar atelectasis.. Minimal right basilar atelectasis. Centrilobular emphysematous changes upper lobe predominance. There is a lytic lesion within the posterior aspect of the C7 vertebral body segment that involves the right pedicle.. The spinal canal is widened at this level with soft tissue epidural soft tissue that extends posteriorly out of the lytic lesion and into the right aspect of the spinal canal with resultant compression and leftward displacement of the spinal cord. Recommend follow-up of pre and post-contrast MRI of the thoracic spine Layering gallbladder sludge.
--- NOTE | 2018-07-30 09:55 | CP.PCM.PN ---
Subjective - Date & Time of Evaluation Date of Evaluation: 07/30/18 Time of Evaluation: 09:52 - Subjective Subjective: ms stable and improving cath deferred today as pt fed in am despite being NPO Objective - Vital Signs/Intake and Output Vital Signs (last 24 hours): Temp Pulse Resp BP Pulse Ox 97.7 F 59 L 18 125/70 97 07/30/18 07:00 07/30/18 07:00 07/30/18 07:00 07/30/18 07:00 07/30/18 07:00 Intake and Output: 07/30/18 07/30/18 06:59 18:59 Output Total 150 Balance -150 - Medications Medications: Current Medications Aspirin (Aspirin) 325 mg PO DAILY [facility] Last Admin: 07/29/18 09:41 Dose: 325 mg Enoxaparin Sodium (Lovenox) 40 mg SC DAILY [facility] Last Admin: 07/29/18 09:40 Dose: 40 mg Azithromycin 500 mg/ Sodium (Chloride) 250 mls @ 250 mls/hr IVPB DAILY [facility]; Protocol Last Admin: 07/29/18 09:40 Dose: 250 mls/hr Losartan Potassium (Cozaar) 25 mg PO DAILY [facility] Last Admin: 07/29/18 09:41 Dose: 25 mg Methylprednisolone (Solu-Medrol) 20 mg IVP Q12 [facility] Last Admin: 07/29/18 21:48 Dose: 20 mg Metoprolol Succinate (Toprol Xl) 25 mg PO DAILY [facility] Last Admin: 07/29/18 09:40 Dose: 25 mg Pantoprazole Sodium (Protonix Ec Tab) 40 mg PO DAILY [facility] Last Admin: 07/29/18 09:41 Dose: 40 mg Rosuvastatin Calcium (Crestor) 10 mg PO HS [facility] Last Admin: 07/29/18 21:48 Dose: 10 mg Spironolactone (Aldactone) 25 mg PO DAILY [facility] Last Admin: 07/29/18 09:41 Dose: 25 mg - Labs Labs: 07/25/18 08:26 07/25/18 08:26 PT 11.2 SECONDS (9.7-12.2) 07/24/18 13:54 INR 1.0 07/24/18 13:54 - Constitutional Appears: Well - Head Exam Head Exam: ATRAUMATIC, NORMAL INSPECTION, NORMOCEPHALIC - Eye Exam Eye Exam: EOMI, Normal appearance, PERRL Pupil Exam: NORMAL ACCOMODATION, PERRL - ENT Exam ENT Exam: Mucous Membranes Moist, Normal Exam - Neck Exam Neck Exam: Full ROM, Normal Inspection. absent: Lymphadenopathy - Respiratory Exam Respiratory Exam: Clear to Ausculation Bilateral, NORMAL BREATHING PATTERN - Cardiovascular Exam Cardiovascular Exam: REGULAR RHYTHM, +S1, +S2, Murmur - GI/Abdominal Exam GI & Abdominal Exam: Soft, Normal Bowel Sounds. absent: Tenderness - Extremities Exam Extremities Exam: Full ROM, Normal Capillary Refill, Normal Inspection. absent: Joint Swelling, Pedal Edema - Back Exam Back Exam: NORMAL INSPECTION - Neurological Exam Neurological Exam: Alert, Awake, CN II-XII Intact, Normal Gait, Oriented x3 - Psychiatric Exam Psychiatric exam: Normal Affect, Normal Mood - Skin Skin Exam: Dry, Intact, Normal Color, Warm Assessment and Plan (1) CHF (congestive heart failure) Assessment & Plan: cont bb,arb,aldactone plan for CHCx tomorrow npo p mn Status: Acute (2) Chest pain Status: Acute (3) SOB (shortness of breath) Status: Acute (4) LBBB (left bundle branch block) Status: Acute (5) Elevated troponin Status: Acute
[2018-07-30] MEDS: Metoprolol Succinate 25 mg XL Tab PO SCH (10:40)
[2018-07-30] MEDS: Enoxaparin 40 mg Syringe SC SCH (10:40)
[2018-07-30] MEDS: Azithromycin 500 MG in Sodium Chloride 0.9% 250 ML IVPB SCH (10:40)
[2018-07-30] MEDS: Pantoprazole 40 mg EC Tab PO SCH (10:41)
[2018-07-30] MEDS: MethylPREDNISolone 40 mg Vial IVP SCH ×2 (10:41→21:22)
[2018-07-30] MEDS ORDERED: Gadodiamide 287 MG/ML VIAL (15ML) IV ONE (13:59)
--- NOTE | 2018-07-30 16:49 | CP.PCM.PN ---
Subjective - Date & Time of Evaluation Date of Evaluation: 07/30/18 - Subjective Subjective: patient examined today no nausea, no vomitng, no fever Objective - Vital Signs/Intake and Output Vital Signs (last 24 hours): Temp Pulse Resp BP Pulse Ox 97.6 F 55 L 20 131/72 97 07/30/18 15:00 07/30/18 15:00 07/30/18 15:00 07/30/18 15:00 07/30/18 15:00 Intake and Output: 07/30/18 07/30/18 06:59 18:59 Intake Total 250 Output Total 150 Balance -150 250 - Medications Medications: Current Medications Aspirin (Aspirin) 325 mg PO DAILY [facility] Last Admin: 07/30/18 10:41 Dose: 325 mg Losartan Potassium (Cozaar) 25 mg PO DAILY [facility] Last Admin: 07/30/18 10:40 Dose: 25 mg Methylprednisolone (Solu-Medrol) 20 mg IVP Q12 [facility] Last Admin: 07/30/18 10:41 Dose: 20 mg Metoprolol Succinate (Toprol Xl) 25 mg PO DAILY [facility] Last Admin: 07/30/18 10:40 Dose: 25 mg Pantoprazole Sodium (Protonix Ec Tab) 40 mg PO DAILY [facility] Last Admin: 07/30/18 10:41 Dose: 40 mg Rosuvastatin Calcium (Crestor) 10 mg PO HS [facility] Last Admin: 07/29/18 21:48 Dose: 10 mg Spironolactone (Aldactone) 25 mg PO DAILY [facility] Last Admin: 07/30/18 10:41 Dose: 25 mg - Labs Labs: 07/25/18 08:26 07/25/18 08:26 PT 11.2 SECONDS (9.7-12.2) 07/24/18 13:54 INR 1.0 07/24/18 13:54 - Constitutional Appears: Well - Head Exam Head Exam: ATRAUMATIC, NORMAL INSPECTION, NORMOCEPHALIC - Eye Exam Eye Exam: EOMI, Normal appearance, PERRL Pupil Exam: NORMAL ACCOMODATION, PERRL - ENT Exam ENT Exam: Mucous Membranes Moist, Normal Exam - Neck Exam Neck Exam: Full ROM, Normal Inspection. absent: Lymphadenopathy - Respiratory Exam Respiratory Exam: Decreased Breath Sounds - Cardiovascular Exam Cardiovascular Exam: REGULAR RHYTHM, +S1, +S2 - GI/Abdominal Exam GI & Abdominal Exam: Soft, Diminished Bowel Sounds - Rectal Exam Rectal Exam: Deferred - Neurological Exam Neurological Exam: Oriented x3 Assessment and Plan (1) Acute encephalopathy Status: Acute (2) CHF (congestive heart failure) Status: Acute (3) Chest pain Status: Acute (4) Elevated troponin Status: Acute (5) LBBB (left bundle branch block) Status: Acute (6) Pneumonia Status: Acute (7) SOB (shortness of breath) Status: Acute - Assessment and Plan (Free Text) Plan: medications reviewed plan discussed with patient labs reviewed vitals reviewed moderate complexity of care aldactone aspirin azithromycin cozaar crestor duoneb lovenox protonix ec tab reocephin solu-medrol toprol xl
--- NOTE | 2018-07-30 18:18 | CP.PCM.PN ---
Subjective - Date & Time of Evaluation Date of Evaluation: 07/30/18 Time of Evaluation: 11:00 - Subjective Subjective: Patient seen and examined Sitting comfortably in no distress Denies cough, denies fever chills CAT scan of the abdomen consistent with hiatal hernia Lytic bone lesion in the thoracic spine Objective - Vital Signs/Intake and Output Vital Signs (last 24 hours): Temp Pulse Resp BP Pulse Ox 97.6 F 55 L 20 131/72 96 07/30/18 15:00 07/30/18 15:00 07/30/18 15:00 07/30/18 15:00 07/30/18 17:59 Intake and Output: 07/30/18 07/30/18 06:59 18:59 Intake Total 250 Output Total 150 Balance -150 250 - Medications Medications: Current Medications Aspirin (Aspirin) 325 mg PO DAILY [facility] Last Admin: 07/30/18 10:41 Dose: 325 mg Losartan Potassium (Cozaar) 25 mg PO DAILY [facility] Last Admin: 07/30/18 10:40 Dose: 25 mg Methylprednisolone (Solu-Medrol) 20 mg IVP Q12 [facility] Last Admin: 07/30/18 10:41 Dose: 20 mg Metoprolol Succinate (Toprol Xl) 25 mg PO DAILY [facility] Last Admin: 07/30/18 10:40 Dose: 25 mg Pantoprazole Sodium (Protonix Ec Tab) 40 mg PO DAILY [facility] Last Admin: 07/30/18 10:41 Dose: 40 mg Rosuvastatin Calcium (Crestor) 10 mg PO HS [facility] Last Admin: 07/29/18 21:48 Dose: 10 mg Spironolactone (Aldactone) 25 mg PO DAILY [facility] Last Admin: 07/30/18 10:41 Dose: 25 mg - Labs Labs: 07/25/18 08:26 07/25/18 08:26 PT 11.2 SECONDS (9.7-12.2) 07/24/18 13:54 INR 1.0 07/24/18 13:54 - Head Exam Head Exam: ATRAUMATIC, NORMOCEPHALIC - ENT Exam ENT Exam: Mucous Membranes Moist - Neck Exam Neck Exam: Normal Inspection - Respiratory Exam Respiratory Exam: Decreased Breath Sounds - Cardiovascular Exam Cardiovascular Exam: REGULAR RHYTHM - GI/Abdominal Exam GI & Abdominal Exam: Soft, Normal Bowel Sounds Assessment and Plan (1) SOB (shortness of breath) Assessment & Plan: Continue steroids Nebulizer treatment MRI of thoracic spine to rule out malignancy Status: Acute (2) Pneumonia Status: Acute
[2018-07-31] MEDS: Albuterol-Ipratrop 3 mg / 0.5 (3 ml) UD INH SCH ×4 (01:43→19:44)
--- NOTE | 2018-07-31 07:17 | CP.PCM.PN ---
<Marti Miller L - Last Filed: 07/31/18 10:36> Subjective - Date & Time of Evaluation Date of Evaluation: 07/31/18 Time of Evaluation: 07:16 - Subjective Subjective: Resident Progress Note for Dr. Garcia Patient examined at bedside. Overnight patient had 2 second pause on telemetry. Patient was asymptomatic at the time. This morning patient denies any symptomatic complaints. Plan for cardiac catheterization today. Denies fevers, chills, chest pain, shortness of breath, abdominal pain. Objective - Vital Signs/Intake and Output Vital Signs (last 24 hours): Temp Pulse Resp BP Pulse Ox 98 F 61 16 138/76 95 07/31/18 00:50 07/31/18 00:50 07/31/18 00:50 07/31/18 00:50 07/31/18 00:50 Intake and Output: 07/31/18 07/31/18 06:59 18:59 Intake Total 0 Output Total 100 Balance -100 - Medications Medications: Current Medications Albuterol/Ipratropium (Duoneb 3 Mg/0.5 Mg (3 Ml) Ud) 3 ml INH RQ6 [facility] Last Admin: 07/31/18 01:43 Dose: 3 ml Aspirin (Aspirin) 325 mg PO DAILY [facility] Last Admin: 07/30/18 10:41 Dose: 325 mg Losartan Potassium (Cozaar) 25 mg PO DAILY [facility] Last Admin: 07/30/18 10:40 Dose: 25 mg Methylprednisolone (Solu-Medrol) 20 mg IVP Q12 [facility] Last Admin: 07/30/18 21:22 Dose: 20 mg Metoprolol Succinate (Toprol Xl) 25 mg PO DAILY [facility] Last Admin: 07/30/18 10:40 Dose: 25 mg Pantoprazole Sodium (Protonix Ec Tab) 40 mg PO DAILY [facility] Last Admin: 07/30/18 10:41 Dose: 40 mg Rosuvastatin Calcium (Crestor) 10 mg PO HS [facility] Last Admin: 07/30/18 21:22 Dose: 10 mg Spironolactone (Aldactone) 25 mg PO DAILY [facility] Last Admin: 07/30/18 10:41 Dose: 25 mg - Labs Labs: 07/25/18 08:26 07/25/18 08:26 PT 11.2 SECONDS (9.7-12.2) 07/24/18 13:54 INR 1.0 07/24/18 13:54 - Constitutional Appears: Well - Head Exam Head Exam: ATRAUMATIC, NORMOCEPHALIC - Eye Exam Eye Exam: EOMI, Normal appearance - ENT Exam ENT Exam: Mucous Membranes Moist - Respiratory Exam Respiratory Exam: Clear to Ausculation Bilateral, NORMAL BREATHING PATTERN - Cardiovascular Exam Cardiovascular Exam: REGULAR RHYTHM, +S1, +S2. absent: Tachycardia - GI/Abdominal Exam GI & Abdominal Exam: Soft. absent: Distended, Tenderness - Neurological Exam Neurological Exam: Alert, Awake, CN II-XII Intact - Psychiatric Exam Psychiatric exam: Normal Affect, Normal Mood - Skin Skin Exam: Dry, Intact, Normal Color Assessment and Plan - Assessment and Plan (Free Text) Plan: Chest pain - EKG shows LBBB - troponins neg x3 - NPO for cardiac cath today CHF (congestive heart failure) - ECHO shows LVEF 25%, diffuse hypokinesis, abnormal diastolic function, mild - continue Toprol XL, Losartan, Aldactone Bone lesion - 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 <Feliz Garcia - Last Filed: 07/31/18 13:33> Objective - Vital Signs/Intake and Output Vital Signs (last 24 hours): Temp Pulse Resp BP Pulse Ox 97.6 F 43 L 20 123/70 97 07/31/18 08:08 07/31/18 09:40 07/31/18 09:40 07/31/18 09:40 07/31/18 09:40 Intake and Output: 07/31/18 07/31/18 06:59 18:59 Intake Total 0 Output Total 100 Balance -100 - Medications Medications: Current Medications Albuterol/Ipratropium (Duoneb 3 Mg/0.5 Mg (3 Ml) Ud) 3 ml INH RQ6 [facility] Last Admin: 07/31/18 07:50 Dose: 3 ml Aspirin (Aspirin) 325 mg PO DAILY [facility] Last Admin: 07/31/18 10:45 Dose: Not Given Losartan Potassium (Cozaar) 25 mg PO DAILY [facility] Last Admin: 07/31/18 10:45 Dose: Not Given Methylprednisolone (Solu-Medrol) 20 mg IVP Q12 [facility] Last Admin: 07/31/18 11:03 Dose: 20 mg Metoprolol Succinate (Toprol Xl) 25 mg PO DAILY [facility] Last Admin: 07/31/18 10:45 Dose: Not Given Pantoprazole Sodium (Protonix Ec Tab) 40 mg PO DAILY [facility] Last Admin: 07/31/18 10:45 Dose: Not Given Rosuvastatin Calcium (Crestor) 10 mg PO HS [facility] Last Admin: 07/30/18 21:22 Dose: 10 mg Spironolactone (Aldactone) 25 mg PO DAILY [facility] Last Admin: 07/31/18 10:45 Dose: Not Given - Labs Labs: 07/25/18 08:26 07/25/18 08:26 PT 11.2 SECONDS (9.7-12.2) 07/24/18 13:54 INR 1.0 07/24/18 13:54 Assessment and Plan (1) CHF (congestive heart failure) Status: Acute (2) Chest pain Status: Acute (3) SOB (shortness of breath) Status: Acute (4) LBBB (left bundle branch block) Status: Acute (5) Elevated troponin Status: Acute Attending/Attestation - Attestation I have personally seen and examined this patient.: Yes I have fully participated in the care of the patient.: Yes I have reviewed all pertinent clinical information, including history, physical exam and plan: Yes Notes (Text): 07/31/18 13:30 s/p complete heart catheterization Right Heat Cath findings Normal filling pressures, normal pulmonary and PCWP CO normal Left heart cath Moderate to severe 2 vessel CAD ( proximal LCx and mid LAD ) will plan for staged PCI in 24-48 hours cont current meds add asa + plavix EP evaluation for 2 second pause noted on telemetry
[2018-07-31] MEDS: Pantoprazole 40 mg EC Tab PO SCH (10:45)
[2018-07-31] MEDS: Metoprolol Succinate 25 mg XL Tab PO SCH (10:45)
[2018-07-31] MEDS: MethylPREDNISolone 40 mg Vial IVP SCH ×2 (11:03→21:14)
[2018-07-31] MEDS ORDERED: Verapamil 2 ML ONE (12:24)
[2018-07-31] MEDS ORDERED: Lidocaine 2% MPF (5 ml) Inj ONE (12:24)
[2018-07-31] MEDS ORDERED: Iodixanol 320 MG/ML 100 ML BOTTLE IV ONE (12:25)
[2018-07-31] MEDS ORDERED: Midazolam 2 MG/2 ML VIAL ONE (12:25)
[2018-07-31] MEDS ORDERED: Nitroglycerin 50mg in D5W 50 MG/250 ML BOTTLE IV ONE (12:25)
[2018-07-31 13:01] LABS: ARTERIAL BLOOD GAS HCO3 25.2 mmol/L (21-28); ARTERIAL BLOOD GAS HEMOGLOBIN 15.6 g/dL (11.7-17.4); ARTERIAL BLOOD GAS O2 SAT 96.6 % (95-98); ARTERIAL BLOOD GAS PCO2 47 mm/Hg (35-45); ARTERIAL BLOOD GAS PH 7.36 (7.35-7.45); ARTERIAL BLOOD GAS PO2 76 mm/Hg (80-100)
[2018-07-31 13:05] LABS: ARTERIAL BLOOD GAS HCO3 24.1 mmol/L (21-28); ARTERIAL BLOOD GAS O2 SAT 79.4 % (95-98); ARTERIAL BLOOD GAS PCO2 47 mm/Hg (35-45); ARTERIAL BLOOD GAS PH 7.35 (7.35-7.45); ARTERIAL BLOOD GAS PO2 43 mm/Hg (80-100); ARTERIAL BLOOD GAS TCO2 27.3 mmol/L (22-28)
--- NOTE | 2018-07-31 14:04 | MRI ---
Date of service: 07/30/2018 PROCEDURE: MR THORACIC SPINE WITH AND WITHOUT CONTRAST HISTORY: lytic mass on CT of chest COMPARISON: CT chest from 07/28/2018. TECHNIQUE: Multiecho multiplanar sequences were performed through the thoracic spine with and without the use of intravenous contrast. FINDINGS: ALIGNMENT: There is normal alignment of the thoracic vertebral bodies. There is normal thoracic kyphosis. VERTEBRA: Vertebral height is normal. No acute fracture. MARROW: There is an expansile T1 hypointense and T2/stir hyperintense avidly enhancing lesion in the right posterior T7 vertebral body on the right also involving the right pedicle and lamina. There is abnormal soft tissue in the dorsal and ventral epidural space and right lateral epidural space without evidence for cord compression. There are no other lesions. Bone marrow signal is normal in the remaining thoracic spine. PARASPINAL SOFT TISSUES: The paraspinous soft tissues are normal. CORD: Unremarkable thoracic cord. No volume loss, signal abnormality or syrinx. DISCS: No disc herniation, spinal canal stenosis, or neuroforaminal narrowing. ENHANCEMENT: No abnormal enhancement. OTHER FINDINGS: There is a 12 x 7 mm T1 hypointense and T2 hyperintense nonenhancing subpleural lesion anterior to the left posterior eight rib which may represent a cyst or small deposit. IMPRESSION: Abnormal destructive lesion in the right posterior T7 vertebral body also involving the right pedicle and lamina with extension of abnormal cells tissue in the ventral and a dorsal epidural space and right lateral epidural space without evidence for cord compression. The differential considerations include metastasis, lymphoma, multiple myeloma amongst others. A preliminary report was provided by [facility].
--- NOTE | 2018-07-31 17:32 | PQF ---
PROVIDER RESPONSE TEXT: Acute functional Metabolic Encephalopathy due to hypoxemia REVIEWER QUERY TEXT: Encephalopathy Type Encephalopathy is documented in the Medical Record. Please specify type Such as: -- Anoxic -- Metabolic -- Septic -- Toxic -- Other, please specify The patient's Clinical Indicators include: History Of Present Illness : "68 year old male with PMHx of diabetes and HTN (uncontrolled, does not have a PMD or specialist) pre sents to the ED BIBA for evaluation of shortness of breath.Reports he stepped out of his house and we nt to help an elderly person laying on the ground.He called 911 and when the core drilling supervisor came they noticed h e was short of breath". 07/24 PN Neuro: (1) Acute encephalopathy appears to be encephalopathic 2/2 respiratory distress, SOB, and possible hypoxia. Other Dx: (1) Chest pain (2) SOB (shortness of breath) (3) LBBB (left bundle branch block) Status: Acute (4) Elevated troponin Status: Acute Consult Pulmo: 1) SOB (shortness of breath) Status: Acute (2) Pneumonia Status: Acute Tx: Aldactone 25 mg PO OD, Lovenox 40 mg SC OD, Solumedrol 40 mg IV Q 12 H, Zithromax 500 mg IV OD, a lbuterol inhalation. Pulmonary and Neuro consult. Query created by: Kenzie Menjivar on 07/27/2018 11:53 AM Electronically signed by: Veto YEE 07/31/2018 5:29 PM
[2018-07-31] MEDS: Sodium Chloride 0.9% 1,000 ML IV SCH (17:46)
--- NOTE | 2018-07-31 18:57 | CP.PCM.PN ---
Subjective - Date & Time of Evaluation Date of Evaluation: 07/31/18 - Subjective Subjective: patient examined today no nausea no vomitnig no dizziness no diarrhea no fever no shortness of breath Objective - Vital Signs/Intake and Output Vital Signs (last 24 hours): Temp Pulse Resp BP Pulse Ox 98.2 F 81 20 129/75 95 07/31/18 17:36 07/31/18 17:36 07/31/18 17:36 07/31/18 17:36 07/31/18 17:36 Intake and Output: 07/31/18 07/31/18 06:59 18:59 Intake Total 0 Output Total 100 Balance -100 - Medications Medications: Current Medications Albuterol/Ipratropium (Duoneb 3 Mg/0.5 Mg (3 Ml) Ud) 3 ml INH RQ6 [facility] Last Admin: 07/31/18 13:30 Dose: Not Given Aspirin (Aspirin) 325 mg PO DAILY [facility] Last Admin: 07/31/18 10:45 Dose: Not Given Sodium Chloride (Sodium Chloride 0.9%) 1,000 mls @ 100 mls/hr IV .Q10H [facility] Last Admin: 07/31/18 17:46 Dose: 100 mls/hr Losartan Potassium (Cozaar) 25 mg PO DAILY [facility] Last Admin: 07/31/18 10:45 Dose: Not Given Methylprednisolone (Solu-Medrol) 20 mg IVP Q12 [facility] Last Admin: 07/31/18 11:03 Dose: 20 mg Metoprolol Succinate (Toprol Xl) 25 mg PO DAILY [facility] Last Admin: 07/31/18 10:45 Dose: Not Given Pantoprazole Sodium (Protonix Ec Tab) 40 mg PO DAILY [facility] Last Admin: 07/31/18 10:45 Dose: Not Given Rosuvastatin Calcium (Crestor) 10 mg PO HS [facility] Last Admin: 07/30/18 21:22 Dose: 10 mg Spironolactone (Aldactone) 25 mg PO DAILY [facility] Last Admin: 07/31/18 10:45 Dose: Not Given - Labs Labs: 07/25/18 08:26 07/25/18 08:26 PT 11.2 SECONDS (9.7-12.2) 07/24/18 13:54 INR 1.0 07/24/18 13:54 - Constitutional Appears: Well - Head Exam Head Exam: ATRAUMATIC, NORMAL INSPECTION, NORMOCEPHALIC - Eye Exam Eye Exam: EOMI, Normal appearance, PERRL Pupil Exam: NORMAL ACCOMODATION, PERRL - ENT Exam ENT Exam: Mucous Membranes Moist, Normal Exam - Neck Exam Neck Exam: Full ROM, Normal Inspection. absent: Lymphadenopathy - Respiratory Exam Respiratory Exam: Decreased Breath Sounds - Cardiovascular Exam Cardiovascular Exam: REGULAR RHYTHM, +S1, +S2 - GI/Abdominal Exam GI & Abdominal Exam: Soft, Diminished Bowel Sounds - Rectal Exam Rectal Exam: Deferred - Neurological Exam Neurological Exam: Oriented x3 Assessment and Plan (1) Acute encephalopathy Status: Acute (2) CHF (congestive heart failure) Status: Acute (3) Chest pain Status: Acute (4) Elevated troponin Status: Acute (5) LBBB (left bundle branch block) Status: Acute (6) Pneumonia Status: Acute (7) SOB (shortness of breath) Status: Acute - Assessment and Plan (Free Text) Plan: aldactone aspirin azithromycin cozaar crestor duoneb lovenox protonix ec tab reocephin sodium chloride solu-medrol toprol xl medications reviewed plan discussed with patient labs reviewed vitals reviewed moderate complexity of care
--- NOTE | 2018-07-31 22:40 | CARDCATH ---
PROCEDURE DATE: 07/31/2018 INDICATION: Mr. Gavin is a 68-year-old male who was admitted to [facility] with complaints of chest pain and shortness of breath, was diagnosed with new-onset CHF, underwent cardiac catheterization after extensive evaluation for possible delirium versus dementia and was cleared by Psych. The patient was brought to the analyst microbiology lab for complete heart catheterization via right brachial venous access and right femoral access. PROCEDURES PERFORMED: Complete heart catheterization with 7-Swazi right brachial venous access and 6-Swazi right radial arterial access, selective left and right coronary angiograms, left ventriculogram, right heart catheterization with hemodynamic and saturations. CORONARY ANATOMY: Left main is a large sized vessel that bifurcates into LAD and left circumflex coronary artery. Left main is free of any obstructive disease. Left circumflex runs in the AV groove, has a proximal 70% stenosis before giving off a medium-sized obtuse marginal 1 branch. Distally is a small-sized vessel and gives off large sized obtuse marginal 2 branch. LAD is a large sized vessel, gives off three medium sized diagonal branches, has a mid LAD 55% to 60% stenosis. RCA is a large sized vessel, gives off right PDA and PLV branches. RCA is free of any obstructive disease. PDA has distal 40% and PLV has mid 45% stenosis. Left ventricular ejection fraction is about 25% to 30%. IMPRESSION: 1. [id number] two vessel coronary artery disease. 2. Moderately depressed ejection fraction with ejection fraction of 30% to 35%. RECOMMENDATIONS: The patient is to undergo a staged PCI of left circumflex and distal LAD. Procedure will be arranged in the next 24 to 48 hours. Continuing the patient on aspirin, beta blockers, statin. Keep the patient on guideline-directed therapy for CAD and CHF. Thank you Dr. Abiel Mann for letting me to participate in the care of your patient. Feliz Garcia MD [facility]
[2018-08-01] MEDS: Albuterol-Ipratrop 3 mg / 0.5 (3 ml) UD INH SCH ×4 (02:12→19:43)
--- NOTE | 2018-08-01 06:03 | CP.PCM.PN ---
Subjective - Date & Time of Evaluation Date of Evaluation: 08/01/18 Time of Evaluation: 06:03 - Subjective Subjective: s/p LHCx showing 2 vessel CAD plan for PCI tomorrow at [facility] [place] ( scheduled for 7:30 am ) completely awake and oriented Objective - Vital Signs/Intake and Output Vital Signs (last 24 hours): Temp Pulse Resp BP Pulse Ox 98.1 F 80 20 125/75 95 07/31/18 23:30 08/01/18 00:00 07/31/18 23:30 07/31/18 23:30 07/31/18 23:30 - Medications Medications: Current Medications Albuterol/Ipratropium (Duoneb 3 Mg/0.5 Mg (3 Ml) Ud) 3 ml INH RQ6 [facility] Last Admin: 08/01/18 02:12 Dose: 3 ml Aspirin (Aspirin) 325 mg PO DAILY [facility] Last Admin: 07/31/18 10:45 Dose: Not Given Sodium Chloride (Sodium Chloride 0.9%) 1,000 mls @ 100 mls/hr IV .Q10H [facility] Last Admin: 07/31/18 17:46 Dose: 100 mls/hr Losartan Potassium (Cozaar) 25 mg PO DAILY [facility] Last Admin: 07/31/18 10:45 Dose: Not Given Methylprednisolone (Solu-Medrol) 20 mg IVP Q12 [facility] Last Admin: 07/31/18 21:14 Dose: 20 mg Metoprolol Succinate (Toprol Xl) 25 mg PO DAILY [facility] Last Admin: 07/31/18 10:45 Dose: Not Given Pantoprazole Sodium (Protonix Ec Tab) 40 mg PO DAILY [facility] Last Admin: 07/31/18 10:45 Dose: Not Given Rosuvastatin Calcium (Crestor) 10 mg PO HS [facility] Last Admin: 07/31/18 21:14 Dose: 10 mg Spironolactone (Aldactone) 25 mg PO DAILY [facility] Last Admin: 07/31/18 10:45 Dose: Not Given - Labs Labs: 07/25/18 08:26 07/25/18 08:26 PT 11.2 SECONDS (9.7-12.2) 07/24/18 13:54 INR 1.0 07/24/18 13:54 - Constitutional Appears: Well - Head Exam Head Exam: ATRAUMATIC, NORMAL INSPECTION, NORMOCEPHALIC - Eye Exam Eye Exam: EOMI, Normal appearance, PERRL Pupil Exam: NORMAL ACCOMODATION, PERRL - ENT Exam ENT Exam: Mucous Membranes Moist, Normal Exam - Neck Exam Neck Exam: Full ROM, Normal Inspection. absent: Lymphadenopathy - Respiratory Exam Respiratory Exam: Clear to Ausculation Bilateral, NORMAL BREATHING PATTERN - Cardiovascular Exam Cardiovascular Exam: REGULAR RHYTHM, +S1, +S2. absent: Murmur - GI/Abdominal Exam GI & Abdominal Exam: Soft, Normal Bowel Sounds. absent: Tenderness - Extremities Exam Extremities Exam: Full ROM, Normal Capillary Refill, Normal Inspection. absent: Joint Swelling, Pedal Edema - Back Exam Back Exam: NORMAL INSPECTION - Neurological Exam Neurological Exam: Alert, Awake, CN II-XII Intact, Normal Gait, Oriented x3 - Psychiatric Exam Psychiatric exam: Normal Affect, Normal Mood - Skin Skin Exam: Dry, Intact, Normal Color, Warm Assessment and Plan (1) CHF (congestive heart failure) Assessment & Plan: ischemic CMP cont arb,bb,aldactone Status: Acute (2) Chest pain Assessment & Plan: plan for PCI of LCx and FFR of LAD loaded with plavix today cont on plavix 75mg po daily along with asa 325mg po daily Status: Acute (3) SOB (shortness of breath) Status: Acute (4) LBBB (left bundle branch block) Status: Acute (5) Elevated troponin Status: Acute
--- NOTE | 2018-08-01 07:15 | CP.PCM.PN ---
<Jess Braga - Last Filed: 08/01/18 07:12> Subjective - Date & Time of Evaluation Date of Evaluation: 08/01/18 Time of Evaluation: 06:15 - Subjective Subjective: Jess Braga, PGY1 Progress Note for Dr. Garcia Pt was seen and examined this AM at bedside. Pt states that he is not having any pain at this time. He denies having any fevers, chills, SOB, chest pain, palpitations, abd pain, n/v, c/d or dysuria. Objective - Vital Signs/Intake and Output Vital Signs (last 24 hours): Temp Pulse Resp BP Pulse Ox 98.1 F 80 20 125/75 95 07/31/18 23:30 08/01/18 00:00 07/31/18 23:30 07/31/18 23:30 07/31/18 23:30 - Medications Medications: Current Medications Albuterol/Ipratropium (Duoneb 3 Mg/0.5 Mg (3 Ml) Ud) 3 ml INH RQ6 [facility] Last Admin: 08/01/18 02:12 Dose: 3 ml Aspirin (Aspirin) 325 mg PO DAILY [facility] Last Admin: 07/31/18 10:45 Dose: Not Given Sodium Chloride (Sodium Chloride 0.9%) 1,000 mls @ 100 mls/hr IV .Q10H [facility] Last Admin: 07/31/18 17:46 Dose: 100 mls/hr Losartan Potassium (Cozaar) 25 mg PO DAILY [facility] Last Admin: 07/31/18 10:45 Dose: Not Given Methylprednisolone (Solu-Medrol) 20 mg IVP Q12 [facility] Last Admin: 07/31/18 21:14 Dose: 20 mg Metoprolol Succinate (Toprol Xl) 25 mg PO DAILY [facility] Last Admin: 07/31/18 10:45 Dose: Not Given Pantoprazole Sodium (Protonix Ec Tab) 40 mg PO DAILY [facility] Last Admin: 07/31/18 10:45 Dose: Not Given Rosuvastatin Calcium (Crestor) 10 mg PO HS [facility] Last Admin: 07/31/18 21:14 Dose: 10 mg Spironolactone (Aldactone) 25 mg PO DAILY [facility] Last Admin: 07/31/18 10:45 Dose: Not Given - Labs Labs: 07/25/18 08:26 07/25/18 08:26 PT 11.2 SECONDS (9.7-12.2) 07/24/18 13:54 INR 1.0 07/24/18 13:54 - Constitutional Appears: Non-toxic, No Acute Distress - Head Exam Head Exam: ATRAUMATIC, NORMAL INSPECTION, NORMOCEPHALIC - Eye Exam Eye Exam: EOMI, Normal appearance, PERRL Pupil Exam: PERRL - ENT Exam ENT Exam: Mucous Membranes Moist, Normal Exam - Neck Exam Neck Exam: Full ROM, Normal Inspection. absent: Lymphadenopathy - Respiratory Exam Respiratory Exam: Clear to Ausculation Bilateral, NORMAL BREATHING PATTERN - Cardiovascular Exam Cardiovascular Exam: REGULAR RHYTHM, +S1, +S2. absent: Murmur - GI/Abdominal Exam GI & Abdominal Exam: Soft, Normal Bowel Sounds. absent: Tenderness - Rectal Exam Rectal Exam: NORMAL INSPECTION - Extremities Exam Extremities Exam: Full ROM. absent: Joint Swelling, Pedal Edema - Back Exam Back Exam: NORMAL INSPECTION. absent: CVA tenderness (L), CVA tenderness (R) - Neurological Exam Neurological Exam: Awake, CN II-XII Intact - Psychiatric Exam Psychiatric exam: Normal Affect, Normal Mood - Skin Skin Exam: Dry, Intact, Normal Color, Warm Assessment and Plan - Assessment and Plan (Free Text) Assessment: Pt is a 68 yo M who presented for confusion and SOB who is now s/p Complete heart cath on 07/31 which showed 2 vessel CAD. Plan: New found HFrEF (EF 20%) complicated by newfound LBBB s/p Complete heart cath 07/31: - Pt found to have 2 vessel disease in Mid LAD of 60-65% stenosis and L circumflex has 70% stenosis - Plan for PCI tomorrow - Please cont losartan, asa, B brooklynn and statin Chest pain: Asymptomatic at this time - Plan for PCI tomorrow <Feliz Garcia - Last Filed: 08/01/18 11:46> Objective - Vital Signs/Intake and Output Vital Signs (last 24 hours): Temp Pulse Resp BP Pulse Ox 97.3 F L 62 18 124/72 100 08/01/18 08:08 08/01/18 08:08 08/01/18 08:08 08/01/18 08:08 08/01/18 08:08 - Medications Medications: Current Medications Albuterol/Ipratropium (Duoneb 3 Mg/0.5 Mg (3 Ml) Ud) 3 ml INH RQ6 [facility] Last Admin: 08/01/18 07:42 Dose: 3 ml Aspirin (Aspirin) 325 mg PO DAILY [facility] Last Admin: 08/01/18 09:02 Dose: 325 mg Clopidogrel Bisulfate (Plavix) 75 mg PO DAILY [facility] Clopidogrel Bisulfate (Plavix) 600 mg PO ONCE ONE Stop: 08/01/18 11:43 Sodium Chloride (Sodium Chloride 0.9%) 1,000 mls @ 100 mls/hr IV .Q10H [facility] Last Admin: 07/31/18 17:46 Dose: 100 mls/hr Losartan Potassium (Cozaar) 25 mg PO DAILY [facility] Last Admin: 08/01/18 09:01 Dose: 25 mg Methylprednisolone (Solu-Medrol) 20 mg IVP Q12 [facility] Last Admin: 08/01/18 09:01 Dose: 20 mg Metoprolol Succinate (Toprol Xl) 25 mg PO DAILY [facility] Last Admin: 08/01/18 09:01 Dose: 25 mg Pantoprazole Sodium (Protonix Ec Tab) 40 mg PO DAILY [facility] Last Admin: 08/01/18 09:01 Dose: 40 mg Rosuvastatin Calcium (Crestor) 10 mg PO HS [facility] Last Admin: 07/31/18 21:14 Dose: 10 mg Spironolactone (Aldactone) 25 mg PO DAILY [facility] Last Admin: 08/01/18 09:01 Dose: 25 mg - Labs Labs: 08/01/18 07:35 08/01/18 07:35 PT 11.2 SECONDS (9.7-12.2) 07/24/18 13:54 INR 1.0 07/24/18 13:54 Assessment and Plan (1) CHF (congestive heart failure) Status: Acute (2) Chest pain Status: Acute (3) SOB (shortness of breath) Status: Acute (4) LBBB (left bundle branch block) Status: Acute (5) Elevated troponin Status: Acute Attending/Attestation - Attestation I have personally seen and examined this patient.: Yes I have fully participated in the care of the patient.: Yes I have reviewed all pertinent clinical information, including history, physical exam and plan: Yes Notes (Text): 08/01/18 11:45 pci of LCx/FFR of LAD in am [place] [facility] [place] loaded with plavix cont asa,bb,arb,aldactone EP evaluation for ICD
[2018-08-01 07:41] LABS: BASO % 0.1 % (0.0-2.0); LYMPH # 1.5 K/uL (1.0-4.3); LYMPH % 12.2 % (20.0-40.0); MEAN CELL VOLUME 96.9 fL (80.0-94.0); MEAN CORPUSCULAR HEMOGLOBIN 32.8 pg (27.0-31.0); MEAN CORPUSCULAR HGB CONC 33.9 g/dL (33.0-37.0); MEAN PLATELET VOLUME 8.1 fL (7.2-11.7); MONO # 0.8 K/uL (0.0-0.8); MONO % 6.1 % (0.0-10.0); NEUT # 10.4 K/uL (1.8-7.0); NEUT % 81.6 % (50.0-75.0); RBC 4.28 Mil/uL (4.40-5.90); RED CELL DISTRIBUTION WIDTH 14.8 % (11.5-14.5); WHITE BLOOD COUNT 12.7 K/uL (4.8-10.8)
[2018-08-01 08:01] LABS: BLOOD UREA NITROGEN 37 mg/dL (9-20); CALCIUM 8.5 mg/dl (8.6-10.4); GFR NON-AFRICAN AMERICAN > 60
[2018-08-01] MEDS: Metoprolol Succinate 25 mg XL Tab PO SCH (09:01)
[2018-08-01] MEDS: Pantoprazole 40 mg EC Tab PO SCH (09:01)
[2018-08-01] MEDS: MethylPREDNISolone 40 mg Vial IVP SCH ×2 (09:01→21:08)
--- NOTE | 2018-08-01 11:40 | CARD ---
APPROVED REPORT Date of service: 07/31/2018 EKG Measurement Heart [id number] <Conclusion> Sinus bradycardia Possible Left atrial enlargement Left axis deviation Left bundle branch block Abnormal ECG
[2018-08-01] MEDS: Sodium Chloride 0.9% 1,000 ML IV SCH ×2 (17:14→21:11)
--- NOTE | 2018-08-01 18:33 | CP.PCM.PN ---
Subjective - Date & Time of Evaluation Date of Evaluation: 08/01/18 Time of Evaluation: 17:00 - Subjective Subjective: Patient seen and examined Complaining of sore throat Status post cardiac cath with 2 vessel disease and ejection fraction 20% Objective - Vital Signs/Intake and Output Vital Signs (last 24 hours): Temp Pulse Resp BP Pulse Ox 97.5 F L 53 L 20 127/70 96 08/01/18 16:04 08/01/18 18:00 08/01/18 16:04 08/01/18 16:04 08/01/18 16:04 - Medications Medications: Current Medications Albuterol/Ipratropium (Duoneb 3 Mg/0.5 Mg (3 Ml) Ud) 3 ml INH RQ6 [facility] Last Admin: 08/01/18 13:21 Dose: Not Given Aspirin (Aspirin) 325 mg PO DAILY [facility] Last Admin: 08/01/18 09:02 Dose: 325 mg Clopidogrel Bisulfate (Plavix) 75 mg PO DAILY [facility] Famotidine (Pepcid) 20 mg PO BID [facility] Sodium Chloride (Sodium Chloride 0.9%) 1,000 mls @ 100 mls/hr IV .Q10H [facility] Last Admin: 08/01/18 17:14 Dose: 100 mls/hr Losartan Potassium (Cozaar) 25 mg PO DAILY [facility] Last Admin: 08/01/18 09:01 Dose: 25 mg Methylprednisolone (Solu-Medrol) 20 mg IVP Q12 [facility] Last Admin: 08/01/18 09:01 Dose: 20 mg Metoprolol Succinate (Toprol Xl) 25 mg PO DAILY [facility] Last Admin: 08/01/18 09:01 Dose: 25 mg Rosuvastatin Calcium (Crestor) 10 mg PO HS [facility] Last Admin: 07/31/18 21:14 Dose: 10 mg Spironolactone (Aldactone) 25 mg PO DAILY [facility] Last Admin: 08/01/18 09:01 Dose: 25 mg - Labs Labs: 08/01/18 07:35 08/01/18 07:35 PT 11.2 SECONDS (9.7-12.2) 07/24/18 13:54 INR 1.0 07/24/18 13:54 - Head Exam Head Exam: ATRAUMATIC, NORMOCEPHALIC - ENT Exam ENT Exam: Mucous Membranes Moist - Neck Exam Neck Exam: Normal Inspection - Respiratory Exam Respiratory Exam: Clear to Ausculation Bilateral - Cardiovascular Exam Cardiovascular Exam: REGULAR RHYTHM - GI/Abdominal Exam GI & Abdominal Exam: Soft, Normal Bowel Sounds Assessment and Plan (1) COPD (chronic obstructive pulmonary disease) Assessment & Plan: Continue nebulizer treatment Status post cardiac cath with two-vessel disease and for PCI tomorrow Antibiotics discontinued Neurosurgical consult Status: Acute (2) Pneumonia Status: Acute
--- NOTE | 2018-08-01 19:12 | CP.PCM.PN ---
Subjective - Date & Time of Evaluation Date of Evaluation: 08/01/18 - Subjective Subjective: patient examined today no nausea no vomiting no dizziness no diarrhea no fever no shortness of breath Objective - Vital Signs/Intake and Output Vital Signs (last 24 hours): Temp Pulse Resp BP Pulse Ox 97.5 F L 53 L 20 127/70 96 08/01/18 16:04 08/01/18 18:00 08/01/18 16:04 08/01/18 16:04 08/01/18 16:04 - Medications Medications: Current Medications Albuterol/Ipratropium (Duoneb 3 Mg/0.5 Mg (3 Ml) Ud) 3 ml INH RQ6 [facility] Last Admin: 08/01/18 13:21 Dose: Not Given Aspirin (Aspirin) 325 mg PO DAILY [facility] Last Admin: 08/01/18 09:02 Dose: 325 mg Clopidogrel Bisulfate (Plavix) 75 mg PO DAILY [facility] Famotidine (Pepcid) 20 mg PO BID [facility] Sodium Chloride (Sodium Chloride 0.9%) 1,000 mls @ 100 mls/hr IV .Q10H [facility] Last Admin: 08/01/18 17:14 Dose: 100 mls/hr Losartan Potassium (Cozaar) 25 mg PO DAILY [facility] Last Admin: 08/01/18 09:01 Dose: 25 mg Methylprednisolone (Solu-Medrol) 20 mg IVP Q12 [facility] Last Admin: 08/01/18 09:01 Dose: 20 mg Metoprolol Succinate (Toprol Xl) 25 mg PO DAILY [facility] Last Admin: 08/01/18 09:01 Dose: 25 mg Rosuvastatin Calcium (Crestor) 10 mg PO HS [facility] Last Admin: 07/31/18 21:14 Dose: 10 mg Spironolactone (Aldactone) 25 mg PO DAILY [facility] Last Admin: 08/01/18 09:01 Dose: 25 mg - Labs Labs: 08/01/18 07:35 08/01/18 07:35 PT 11.2 SECONDS (9.7-12.2) 07/24/18 13:54 INR 1.0 07/24/18 13:54 - Constitutional Appears: Well - Head Exam Head Exam: ATRAUMATIC, NORMAL INSPECTION, NORMOCEPHALIC - Eye Exam Eye Exam: EOMI, Normal appearance, PERRL Pupil Exam: NORMAL ACCOMODATION, PERRL - ENT Exam ENT Exam: Mucous Membranes Moist, Normal Exam - Neck Exam Neck Exam: Full ROM, Normal Inspection. absent: Lymphadenopathy - Respiratory Exam Respiratory Exam: Decreased Breath Sounds - Cardiovascular Exam Cardiovascular Exam: REGULAR RHYTHM, +S1, +S2 - GI/Abdominal Exam GI & Abdominal Exam: Soft, Diminished Bowel Sounds - Rectal Exam Rectal Exam: Deferred - Neurological Exam Neurological Exam: Oriented x3 Assessment and Plan (1) Acute encephalopathy Status: Acute (2) CHF (congestive heart failure) Status: Acute (3) Chest pain Status: Acute (4) Elevated troponin Status: Acute (5) LBBB (left bundle branch block) Status: Acute (6) Pneumonia Status: Acute (7) SOB (shortness of breath) Status: Acute - Assessment and Plan (Free Text) Plan: plan discussed with patient and family moderate complexity of care labs reviewed vitals reviewed medications reviewed aldactone aspirin cozaar crestor duoneb pepcid plavix sodium chloride solu-medrol toprol xl
[2018-08-02] MEDS: Albuterol-Ipratrop 3 mg / 0.5 (3 ml) UD INH SCH ×3 (01:46→19:23)
[2018-08-02] MEDS: Metoprolol Succinate 25 mg XL Tab PO SCH (11:17)
[2018-08-02] MEDS: MethylPREDNISolone 40 mg Vial IVP SCH ×2 (11:18→21:17)
[2018-08-02] MEDS: Sodium Chloride 0.9% 1,000 ML IV SCH (15:56)
--- NOTE | 2018-08-02 18:45 | CP.PCM.PN ---
Subjective - Date & Time of Evaluation Date of Evaluation: 08/02/18 - Subjective Subjective: patient examined today no nausea no vomiting no fever no dizziness no diarrhea no shortness or breath Objective - Vital Signs/Intake and Output Vital Signs (last 24 hours): Temp Pulse Resp BP Pulse Ox 97.8 F 53 L 20 123/71 96 08/02/18 15:00 08/02/18 16:58 08/02/18 15:00 08/02/18 15:00 08/02/18 15:00 Intake and Output: 08/02/18 08/02/18 06:59 18:59 Intake Total 800 Balance 800 - Medications Medications: Current Medications Albuterol/Ipratropium (Duoneb 3 Mg/0.5 Mg (3 Ml) Ud) 3 ml INH RQ6 [facility] Last Admin: 08/02/18 07:56 Dose: Not Given Aspirin (Aspirin) 325 mg PO DAILY [facility] Last Admin: 08/02/18 11:18 Dose: 325 mg Clopidogrel Bisulfate (Plavix) 75 mg PO DAILY [facility] Last Admin: 08/02/18 11:18 Dose: 75 mg Famotidine (Pepcid) 20 mg PO BID [facility] Last Admin: 08/02/18 17:08 Dose: 20 mg Sodium Chloride (Sodium Chloride 0.9%) 1,000 mls @ 100 mls/hr IV .Q10H [facility] Last Admin: 08/02/18 15:56 Dose: 100 mls/hr Losartan Potassium (Cozaar) 25 mg PO DAILY [facility] Last Admin: 08/02/18 11:17 Dose: 25 mg Methylprednisolone (Solu-Medrol) 20 mg IVP Q12 [facility] Last Admin: 08/02/18 11:18 Dose: 20 mg Metoprolol Succinate (Toprol Xl) 25 mg PO DAILY [facility] Last Admin: 08/02/18 11:17 Dose: 25 mg Rosuvastatin Calcium (Crestor) 10 mg PO HS [facility] Last Admin: 08/01/18 21:08 Dose: 10 mg Spironolactone (Aldactone) 25 mg PO DAILY [facility] Last Admin: 08/02/18 11:17 Dose: 25 mg - Labs Labs: 08/01/18 07:35 08/01/18 07:35 PT 11.2 SECONDS (9.7-12.2) 07/24/18 13:54 INR 1.0 07/24/18 13:54 - Constitutional Appears: Well - Head Exam Head Exam: ATRAUMATIC, NORMAL INSPECTION, NORMOCEPHALIC - Eye Exam Eye Exam: EOMI, Normal appearance, PERRL Pupil Exam: NORMAL ACCOMODATION, PERRL - ENT Exam ENT Exam: Mucous Membranes Moist, Normal Exam - Neck Exam Neck Exam: Full ROM, Normal Inspection. absent: Lymphadenopathy - Respiratory Exam Respiratory Exam: Decreased Breath Sounds - Cardiovascular Exam Cardiovascular Exam: REGULAR RHYTHM, +S1, +S2 - GI/Abdominal Exam GI & Abdominal Exam: Soft, Diminished Bowel Sounds - Rectal Exam Rectal Exam: Deferred - Neurological Exam Neurological Exam: Oriented x3 Assessment and Plan (1) Acute encephalopathy Status: Acute (2) CHF (congestive heart failure) Status: Acute (3) Chest pain Status: Acute (4) Elevated troponin Status: Acute (5) LBBB (left bundle branch block) Status: Acute (6) Pneumonia Status: Acute (7) SOB (shortness of breath) Status: Acute - Assessment and Plan (Free Text) Plan: plan discussed with patient and family moderate complexity of care labs reviewed vitals reviewed medications reviewed aldactone aspirin cozaar crestor duoneb pepcid plavix sodium chloride solu-medrol toprol xl
--- NOTE | 2018-08-02 18:50 | CP.PCM.PN ---
Subjective - Date & Time of Evaluation Date of Evaluation: 08/02/18 Time of Evaluation: 18:50 - Subjective Subjective: Resident Progress Note for Dr. Garcia Patient examined at bedside. No acute events overnight. Patient's mentation improved, denies chest pain, shortness of breath or any other complaints. Plan for cardiac cath at [place]. Objective - Vital Signs/Intake and Output Vital Signs (last 24 hours): Temp Pulse Resp BP Pulse Ox 97.8 F 53 L 20 123/71 96 08/02/18 15:00 08/02/18 16:58 08/02/18 15:00 08/02/18 15:00 08/02/18 15:00 Intake and Output: 08/02/18 08/02/18 06:59 18:59 Intake Total 800 Balance 800 - Medications Medications: Current Medications Albuterol/Ipratropium (Duoneb 3 Mg/0.5 Mg (3 Ml) Ud) 3 ml INH RQ6 [facility] Last Admin: 08/02/18 07:56 Dose: Not Given Aspirin (Aspirin) 325 mg PO DAILY [facility] Last Admin: 08/02/18 11:18 Dose: 325 mg Clopidogrel Bisulfate (Plavix) 75 mg PO DAILY [facility] Last Admin: 08/02/18 11:18 Dose: 75 mg Famotidine (Pepcid) 20 mg PO BID [facility] Last Admin: 08/02/18 17:08 Dose: 20 mg Sodium Chloride (Sodium Chloride 0.9%) 1,000 mls @ 100 mls/hr IV .Q10H [facility] Last Admin: 08/02/18 15:56 Dose: 100 mls/hr Losartan Potassium (Cozaar) 25 mg PO DAILY [facility] Last Admin: 08/02/18 11:17 Dose: 25 mg Methylprednisolone (Solu-Medrol) 20 mg IVP Q12 [facility] Last Admin: 08/02/18 11:18 Dose: 20 mg Metoprolol Succinate (Toprol Xl) 25 mg PO DAILY [facility] Last Admin: 08/02/18 11:17 Dose: 25 mg Rosuvastatin Calcium (Crestor) 10 mg PO HS [facility] Last Admin: 08/01/18 21:08 Dose: 10 mg Spironolactone (Aldactone) 25 mg PO DAILY [facility] Last Admin: 08/02/18 11:17 Dose: 25 mg - Labs Labs: 08/01/18 07:35 08/01/18 07:35 PT 11.2 SECONDS (9.7-12.2) 07/24/18 13:54 INR 1.0 07/24/18 13:54 - Constitutional Appears: Non-toxic, No Acute Distress - Head Exam Head Exam: ATRAUMATIC, NORMOCEPHALIC - Eye Exam Eye Exam: EOMI, Normal appearance - ENT Exam ENT Exam: Mucous Membranes Moist - Respiratory Exam Respiratory Exam: Clear to Ausculation Bilateral, NORMAL BREATHING PATTERN - Cardiovascular Exam Cardiovascular Exam: REGULAR RHYTHM, +S1, +S2. absent: Murmur - GI/Abdominal Exam GI & Abdominal Exam: Soft, Normal Bowel Sounds. absent: Tenderness - Neurological Exam Neurological Exam: Awake, CN II-XII Intact - Psychiatric Exam Psychiatric exam: Normal Affect, Normal Mood - Skin Skin Exam: Dry, Intact, Normal Color, Warm Assessment and Plan - Assessment and Plan (Free Text) Plan: Chest pain - EKG shows LBBB - troponins neg x3 - cardiac cath from 07/31/2018 shows 2 vessel disease in Mid LAD of 60-65% stenosis and L circumflex has 70% stenosis - continue ASA, Toprol XL, rosuvastatin, losartan - plan for cath at [place] CHF (congestive heart failure) - ECHO shows LVEF 25%, diffuse hypokinesis, abnormal diastolic function, mild - continue Toprol XL, Losartan, Aldactone Bone lesion - 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
--- NOTE | 2018-08-02 19:11 | CP.PCM.CON ---
History of Present Illness - History of Present Illness History of Present Illness: 68 year old male with a history of tobacco abuse, DM, HTN, presenting with shortness of breath, found to have a LBBB and CAD, with T7 lesion. The patient notes to mid back pain, radiating to his right flank for about 1 months times. He denies weakness. He does note to some dyspnea with exertion and chest pain. An MRI of T spine revealed a destructive lesion involving T7 and epidural space but no cord compression. Past medical history: tobacco abuse, DM, HTN Past surgical history: Denies Family history: Denies hematologic and oncologic problems Social history: 1ppd since he was a teenager, denies alcohol, and illicit drug use. Allergies: NKA Review of systems including HEENT, cardiovascular, respiratory, gastroi ntestinal, genitourinary, musculoskeletal, dermatologic, neurologic, and psychiatric are negative unless mentioned in the HPI. Past Patient History - Infectious Disease Hx of Infectious Diseases: None - Past Medical History & Family History Past Medical History?: Yes - Past Social History Smoking Status: Former Smoker - CARDIAC Hx Hypertension: Yes - PULMONARY Hx Chronic Obstructive Pulmonary Disease (COPD): Yes (not sure) - NEUROLOGICAL Hx Neurological Disorder: No - HEENT Hx HEENT Problems: No - RENAL Hx Chronic Kidney Disease: No - ENDOCRINE/METABOLIC Hx Endocrine Disorders: Yes Hx Diabetes Mellitus Type 2: Yes - HEMATOLOGICAL/ONCOLOGICAL Hx Blood Disorders: No - INTEGUMENTARY Hx Dermatological Problems: No - MUSCULOSKELETAL/RHEUMATOLOGICAL Hx Musculoskeletal Disorders: Yes Hx Falls: Yes - GASTROINTESTINAL Hx Gastrointestinal Disorders: No - GENITOURINARY/GYNECOLOGICAL Hx Genitourinary Disorders: No - PSYCHIATRIC Hx Substance Use: No - SURGICAL HISTORY Hx Surgeries: Yes Hx Orthopedic Surgery: Yes - ANESTHESIA Hx Anesthesia: Yes Hx Anesthesia Reactions: No Hx Malignant Hyperthermia: No Has any member of the family had a problem w/ anesthesia?: No Meds Allergies/Adverse Reactions: Allergies Allergy/AdvReac Type Severity Reaction Status Date / Time No Known Allergies Allergy Verified 07/22/18 13:34 - Medications Medications: Current Medications Albuterol/Ipratropium (Duoneb 3 Mg/0.5 Mg (3 Ml) Ud) 3 ml INH RQ6 [facility] Last Admin: 08/02/18 07:56 Dose: Not Given Aspirin (Aspirin) 325 mg PO DAILY [facility] Last Admin: 08/02/18 11:18 Dose: 325 mg Clopidogrel Bisulfate (Plavix) 75 mg PO DAILY [facility] Last Admin: 08/02/18 11:18 Dose: 75 mg Famotidine (Pepcid) 20 mg PO BID [facility] Last Admin: 08/02/18 17:08 Dose: 20 mg Sodium Chloride (Sodium Chloride 0.9%) 1,000 mls @ 100 mls/hr IV .Q10H [facility] Last Admin: 08/02/18 15:56 Dose: 100 mls/hr Losartan Potassium (Cozaar) 25 mg PO DAILY [facility] Last Admin: 08/02/18 11:17 Dose: 25 mg Methylprednisolone (Solu-Medrol) 20 mg IVP Q12 [facility] Last Admin: 08/02/18 11:18 Dose: 20 mg Metoprolol Succinate (Toprol Xl) 25 mg PO DAILY [facility] Last Admin: 08/02/18 11:17 Dose: 25 mg Rosuvastatin Calcium (Crestor) 10 mg PO HS [facility] Last Admin: 08/01/18 21:08 Dose: 10 mg Spironolactone (Aldactone) 25 mg PO DAILY [facility] Last Admin: 08/02/18 11:17 Dose: 25 mg Physical Exam - Head Exam Head Exam: ATRAUMATIC - Eye Exam Eye Exam: Normal appearance - ENT Exam ENT Exam: Mucous Membranes Dry - Respiratory Exam Respiratory Exam: NORMAL BREATHING PATTERN - Cardiovascular Exam Cardiovascular Exam: +S1, +S2 - GI/Abdominal Exam GI & Abdominal Exam: Normal Bowel Sounds - Extremities Exam Extremities exam: Positive for: normal inspection - Neurological Exam Neurological exam: Oriented x3 - Psychiatric Exam Psychiatric exam: Normal Affect, Normal Mood - Skin Skin Exam: Warm Results - Vital Signs Recent Vital Signs: Last Vital Signs Temp 97.8 F 08/02/18 15:00 Pulse 53 L 08/02/18 16:58 Resp 20 08/02/18 15:00 BP 123/71 08/02/18 15:00 Pulse Ox 96 08/02/18 15:00 - Labs Result Diagrams: 08/01/18 07:35 08/01/18 07:35 Labs: Laboratory Results - last 24 hr 07/31/18 08/01/18 08/02/18 19:46 21:27 11:38 POC Glucose (mg/dL) 243 H 177 H Total Protein (PEP) 5.8 L 08/02/18 16:10 POC Glucose (mg/dL) 192 H Total Protein (PEP) Assessment & Plan (1) Bone lesion Assessment and Plan: rule out malignancy ? metastasis vs primary monoclonal protein w/u sent - ? multiple myeloma will need contrast enhanced imaging of A/P but will hold given planned PCI inte rvention neurosurgical evaluation once cardiac issues stabilized Thank you for this interesting consult. Status: Acute
--- NOTE | 2018-08-02 19:31 | CP.PCM.PN ---
Subjective - Date & Time of Evaluation Date of Evaluation: 08/02/18 Time of Evaluation: 18:00 - Subjective Subjective: No complaints. Objective - Vital Signs/Intake and Output Vital Signs (last 24 hours): Temp Pulse Resp BP Pulse Ox 97.8 F 53 L 20 123/71 96 08/02/18 15:00 08/02/18 16:58 08/02/18 15:00 08/02/18 15:00 08/02/18 15:00 Intake and Output: 08/02/18 08/03/18 18:59 06:59 Intake Total 800 Balance 800 - Medications Medications: Current Medications Albuterol/Ipratropium (Duoneb 3 Mg/0.5 Mg (3 Ml) Ud) 3 ml INH RQ6 [facility] Last Admin: 08/02/18 19:23 Dose: 3 ml Aspirin (Aspirin) 325 mg PO DAILY [facility] Last Admin: 08/02/18 11:18 Dose: 325 mg Clopidogrel Bisulfate (Plavix) 75 mg PO DAILY [facility] Last Admin: 08/02/18 11:18 Dose: 75 mg Famotidine (Pepcid) 20 mg PO BID [facility] Last Admin: 08/02/18 17:08 Dose: 20 mg Sodium Chloride (Sodium Chloride 0.9%) 1,000 mls @ 100 mls/hr IV .Q10H [facility] Last Admin: 08/02/18 15:56 Dose: 100 mls/hr Losartan Potassium (Cozaar) 25 mg PO DAILY [facility] Last Admin: 08/02/18 11:17 Dose: 25 mg Methylprednisolone (Solu-Medrol) 20 mg IVP Q12 [facility] Last Admin: 08/02/18 11:18 Dose: 20 mg Metoprolol Succinate (Toprol Xl) 25 mg PO DAILY [facility] Last Admin: 08/02/18 11:17 Dose: 25 mg Rosuvastatin Calcium (Crestor) 10 mg PO HS [facility] Last Admin: 08/01/18 21:08 Dose: 10 mg Spironolactone (Aldactone) 25 mg PO DAILY [facility] Last Admin: 08/02/18 11:17 Dose: 25 mg - Labs Labs: 08/01/18 07:35 08/01/18 07:35 PT 11.2 SECONDS (9.7-12.2) 07/24/18 13:54 INR 1.0 07/24/18 13:54 - Head Exam Head Exam: ATRAUMATIC - Eye Exam Eye Exam: Normal appearance - ENT Exam ENT Exam: Mucous Membranes Dry - Respiratory Exam Respiratory Exam: NORMAL BREATHING PATTERN - Cardiovascular Exam Cardiovascular Exam: +S1, +S2 - GI/Abdominal Exam GI & Abdominal Exam: Normal Bowel Sounds Assessment and Plan (1) Bone lesion Assessment & Plan: rule out malignancy will need CT A/P post PCI neurosurgical evaluation once cardiac issues stabilized; biopsy unlikely at this time due to antiplatelet f/u monoclonal protein w/u Status: Acute
[2018-08-03] MEDS: Albuterol-Ipratrop 3 mg / 0.5 (3 ml) UD INH SCH ×2 (01:59→07:52)
[2018-08-03 04:21] LABS: ALBUMIN (PEP) 3.1 g/dL (3.8-4.8); ALPHA-1-GLOBULIN (PEP) 0.2 g/dL (0.2-0.3)
--- NOTE | 2018-08-03 07:11 | CP.PCM.PN ---
Subjective - Date & Time of Evaluation Date of Evaluation: 08/03/18 Time of Evaluation: 06:54 - Subjective Subjective: Jess Braga, PGY1 Progress Note for Dr. Garcia Pt was seen and examined this AM at bedside. Pt states that he knows he will be going [place]. Otherwise pt has no questions or concerns about the procedure at this time. Pt had some episodes of sinus bradycardia overnight while sleeping. No other acute events or complaints from the pt at this time. Objective - Vital Signs/Intake and Output Vital Signs (last 24 hours): Temp Pulse Resp BP Pulse Ox 98 F 72 20 162/79 H 94 L 08/02/18 23:30 08/03/18 00:26 08/02/18 23:30 08/02/18 23:30 08/02/18 23:30 Intake and Output: 08/02/18 08/03/18 18:59 06:59 Intake Total 800 Balance 800 - Medications Medications: Current Medications Albuterol/Ipratropium (Duoneb 3 Mg/0.5 Mg (3 Ml) Ud) 3 ml INH RQ6 [facility] Last Admin: 08/03/18 01:59 Dose: Not Given Aspirin (Aspirin) 325 mg PO DAILY [facility] Last Admin: 08/02/18 11:18 Dose: 325 mg Clopidogrel Bisulfate (Plavix) 75 mg PO DAILY [facility] Last Admin: 08/02/18 11:18 Dose: 75 mg Famotidine (Pepcid) 20 mg PO BID [facility] Last Admin: 08/02/18 17:08 Dose: 20 mg Sodium Chloride (Sodium Chloride 0.9%) 1,000 mls @ 100 mls/hr IV .Q10H [facility] Last Admin: 08/02/18 15:56 Dose: 100 mls/hr Losartan Potassium (Cozaar) 25 mg PO DAILY [facility] Last Admin: 08/02/18 11:17 Dose: 25 mg Methylprednisolone (Solu-Medrol) 20 mg IVP Q12 [facility] Last Admin: 08/02/18 21:17 Dose: 20 mg Metoprolol Succinate (Toprol Xl) 25 mg PO DAILY [facility] Last Admin: 08/02/18 11:17 Dose: 25 mg Rosuvastatin Calcium (Crestor) 10 mg PO HS [facility] Last Admin: 08/02/18 21:17 Dose: 10 mg Spironolactone (Aldactone) 25 mg PO DAILY [facility] Last Admin: 08/02/18 11:17 Dose: 25 mg - Labs Labs: 08/01/18 07:35 08/01/18 07:35 PT 11.2 SECONDS (9.7-12.2) 07/24/18 13:54 INR 1.0 07/24/18 13:54 - Constitutional Appears: Non-toxic, No Acute Distress - Head Exam Head Exam: ATRAUMATIC, NORMAL INSPECTION, NORMOCEPHALIC - Eye Exam Eye Exam: EOMI, Normal appearance, PERRL Pupil Exam: PERRL - ENT Exam ENT Exam: Mucous Membranes Moist, Normal Exam - Neck Exam Neck Exam: Full ROM, Normal Inspection. absent: Lymphadenopathy - Respiratory Exam Respiratory Exam: Clear to Ausculation Bilateral, NORMAL BREATHING PATTERN - Cardiovascular Exam Cardiovascular Exam: REGULAR RHYTHM, +S1, +S2. absent: Murmur - GI/Abdominal Exam GI & Abdominal Exam: Soft, Normal Bowel Sounds. absent: Tenderness - Rectal Exam Rectal Exam: NORMAL INSPECTION - Extremities Exam Extremities Exam: Full ROM. absent: Joint Swelling, Pedal Edema - Back Exam Back Exam: NORMAL INSPECTION. absent: CVA tenderness (L), CVA tenderness (R) - Neurological Exam Neurological Exam: Awake, CN II-XII Intact - Psychiatric Exam Psychiatric exam: Normal Affect, Normal Mood - Skin Skin Exam: Dry, Intact, Normal Color, Warm Assessment and Plan - Assessment and Plan (Free Text) Assessment: Pt is a 68 yo M who presented for confusion and SOB who is now s/p Complete heart cath on 07/31 which showed 2 vessel CAD. Plan: New found HFrEF (EF 20%) complicated by newfound LBBB s/p Complete heart cath 07/31: - Pt found to have 2 vessel disease in Mid LAD of 60-65% stenosis and L circumflex has 70% stenosis - Plan for PCI @ [place], will be transported today - Please cont losartan, asa, B brooklynn and statin Chest pain: Asymptomatic at this time - Pt is NPO - Pt is consented for transfer to [place] where pt will undergo PCI.
[2018-08-03 08:18] LABS: HEMOGLOBIN 14.6 g/dL (12.0-18.0); MEAN CELL VOLUME 95.3 fL (80.0-94.0); MEAN CORPUSCULAR HEMOGLOBIN 33.1 pg (27.0-31.0); MEAN CORPUSCULAR HGB CONC 34.8 g/dL (33.0-37.0); MEAN PLATELET VOLUME 8.2 fL (7.2-11.7); RBC 4.4 Mil/uL (4.40-5.90); RED CELL DISTRIBUTION WIDTH 14.2 % (11.5-14.5); WHITE BLOOD COUNT 12.2 K/uL (4.8-10.8)
[2018-08-03 08:26] LABS: BLOOD UREA NITROGEN 23 mg/dL (9-20); CALCIUM 8.8 mg/dl (8.6-10.4); GFR NON-AFRICAN AMERICAN > 60
[2018-08-03] MEDS: MethylPREDNISolone 40 mg Vial IVP SCH (10:22)
[2018-08-03] MEDS: Metoprolol Succinate 25 mg XL Tab PO SCH (10:22)
[2018-08-03 12:47] VITALS: BP 155/85; PULSE 60; RESP 18; TEMP 97.4; O2SAT 97
[2018-08-03] MEDS: Sodium Chloride 0.9% 1,000 ML IV SCH (12:53)
--- NOTE | 2018-08-03 23:08 | CP.PCM.PN ---
Subjective - Date & Time of Evaluation Date of Evaluation: 08/03/18 Objective - Vital Signs/Intake and Output Vital Signs (last 24 hours): Temp Pulse Resp BP Pulse Ox 97.4 F L 60 18 155/85 H 97 08/03/18 12:40 08/03/18 12:40 08/03/18 12:40 08/03/18 12:40 08/03/18 12:40 - Medications Medications: Current Medications Albuterol/Ipratropium (Duoneb 3 Mg/0.5 Mg (3 Ml) Ud) 3 ml INH RQ6 [facility] Last Admin: 08/03/18 07:52 Dose: 3 ml Aspirin (Aspirin) 325 mg PO DAILY [facility] Last Admin: 08/03/18 10:23 Dose: 325 mg Clopidogrel Bisulfate (Plavix) 75 mg PO DAILY [facility] Last Admin: 08/03/18 10:23 Dose: 75 mg Famotidine (Pepcid) 20 mg PO BID [facility] Last Admin: 08/03/18 10:23 Dose: 20 mg Losartan Potassium (Cozaar) 25 mg PO DAILY [facility] Last Admin: 08/03/18 10:27 Dose: 25 mg Methylprednisolone (Solu-Medrol) 20 mg IVP Q12 [facility] Last Admin: 08/03/18 10:22 Dose: 20 mg Metoprolol Succinate (Toprol Xl) 25 mg PO DAILY [facility] Last Admin: 08/03/18 10:22 Dose: 25 mg Rosuvastatin Calcium (Crestor) 10 mg PO HS [facility] Last Admin: 08/02/18 21:17 Dose: 10 mg Spironolactone (Aldactone) 25 mg PO DAILY [facility] Last Admin: 08/03/18 10:27 Dose: 25 mg - Labs Labs: 08/03/18 08:02 08/03/18 08:02 PT 11.2 SECONDS (9.7-12.2) 07/24/18 13:54 INR 1.0 07/24/18 13:54 Assessment and Plan (1) Acute encephalopathy Status: Acute (2) CHF (congestive heart failure) Status: Acute (3) Chest pain Status: Acute (4) Elevated troponin Status: Acute (5) LBBB (left bundle branch block) Status: Acute (6) Pneumonia Status: Acute (7) SOB (shortness of breath) Status: Acute
--- NOTE | 2018-08-05 21:53 | CP.PCM.PN ---
Subjective - Date & Time of Evaluation Date of Evaluation: 08/03/18 Time of Evaluation: 11:00 - Subjective Subjective: No complaints. Objective - Vital Signs/Intake and Output Vital Signs (last 24 hours): Temp Pulse Resp BP Pulse Ox 97.4 F L 60 18 155/85 H 97 08/03/18 12:40 08/03/18 12:40 08/03/18 12:40 08/03/18 12:40 08/03/18 12:40 - Labs Labs: 08/03/18 08:02 08/03/18 08:02 PT 11.2 SECONDS (9.7-12.2) 07/24/18 13:54 INR 1.0 07/24/18 13:54 - Head Exam Head Exam: ATRAUMATIC - Eye Exam Eye Exam: Normal appearance - ENT Exam ENT Exam: Mucous Membranes Dry - Respiratory Exam Respiratory Exam: NORMAL BREATHING PATTERN - Cardiovascular Exam Cardiovascular Exam: +S1, +S2 - GI/Abdominal Exam GI & Abdominal Exam: Normal Bowel Sounds Assessment and Plan (1) Bone lesion Assessment & Plan: rule out malignancy will need CT A/P post PCI neurosurgical evaluation once cardiac issues stabilized; biopsy unlikely at this time due to antiplatelet f/u monoclonal protein w/u Status: Acute
== END 2018-08-04 | disposition short-term general hospital (02) | DRG 286 ==
LOC: C.ER 13:13 → C.9E 16:30 → C.5S 17:10 → OBSVTOIN 07-24 14:16 → C.5S 07-26 23:23
PROVIDERS: ADMIT Internal Medicine Nephrology; ATTEND Internal Medicine Nephrology
PROC: 4A023N8 Measurement of Cardiac Sampling and Pressure, Bilateral, Percutaneous Approach (ICD-10-PCS; principal; 2018-07-24)
PROC: B2161ZZ Fluoroscopy of Right and Left Heart using Low Osmolar Contrast (ICD-10-PCS; 2018-07-24)
DX: I11.0 Hypertensive heart disease with heart failure (principal); J18.9 Pneumonia, unspecified organism; G93.41 Metabolic encephalopathy; J44.0 Chronic obstructive pulmonary disease with (acute) lower respiratory infection; C90.00 Multiple myeloma not having achieved remission; I25.10 Atherosclerotic heart disease of native coronary artery without angina pectoris; I44.7 Left bundle-branch block, unspecified; J44.9 Chronic obstructive pulmonary disease, unspecified; E11.9 Type 2 diabetes mellitus without complications; I50.9 Heart failure, unspecified; I25.5 Ischemic cardiomyopathy; F22 Delusional disorders; Z87.891 Personal history of nicotine dependence